=== PATIENT | female | born 1945 | race Caucasian/White ===

== ENCOUNTER 2016-05-09 12:05 | Inpatient (IN) | payer OTHER, MEDICARE ==
[~2016-05-09] VITALS: Ht 162.6 cm; Wt 75.5 kg
[~2016-05-09 12:05] MED LIST: ASPI1TAB69 PO; ATEN50TA PO; CELE1CAP8 PO; EVEN10003 PO; FENO54TA PO; LEVO75TA3 PO; LORA10TA PO; LOSA50TA PO; MAGN400C2 PO; METF500T PO; SPIRCAP INH
[2016-05-09] MEDS ORDERED: ROSU10 PO (14:37)
[2016-08-04] MEDS ORDERED: ACIDCAP PO (10:02)
[2016-08-04] MEDS ORDERED: MULT-65 PO (10:02)
[2016-08-04] MEDS ORDERED: CLOP75TA PO (10:03)
[2016-08-04] MEDS ORDERED: FLUT50SP EACH NARE (10:04)
[2016-08-05] VITALS (8 sets, daily range): BP systolic 114–177; BP diastolic 62–79; PULSE 68–82; RESP 16–18; TEMP 97.9–98.1; O2SAT 94–99
[2016-08-05] MEDS ORDERED: LACTATED RINGER'S 1000 ML IV SCH (09:00)
[2016-08-05] MEDS ORDERED: ceFAZolin 1,000 MG/NS 100 ML IV SCH ×2 (09:00)
[2016-08-05] MEDS ORDERED: SODIUM CHLORID 0.9% 500 ML IV SCH (09:00)
[2016-08-05] MEDS ORDERED: INSULIN HUMAN REGULAR 1,000 UNITS/10 ML VIAL SQ PRN (09:00)
[2016-08-05] MEDS ORDERED: METOPROLOL TARTRATE 25 MG TAB PO PRN (09:00)
[2016-08-05 09:25] LABS: AUTOMATED NEUTROPHIL # 3.5 TH/MM3 (1.8-7.7); BASOPHIL # 0.1 TH/MM3 (0-0.2); EOSINOPHIL # 0.2 TH/MM3 (0-0.4); EOSINOPHIL % 3.7 % (0.0-4.0); HEMATOCRIT 35.5 % (35.0-46.0); HEMO FLAGS DIFF FINAL; LYMPH % 26.5 % (9.0-44.0); LYMPHOCYTE # 1.5 TH/MM3 (1.0-4.8); MEAN CELL VOLUME 96.4 FL (80.0-100.0); MEAN CORPUSCULAR HEMOGLOBIN 31.3 PG (27.0-34.0); MEAN CORPUSCULAR HGB CONC 32.5 % (32.0-36.0); MONO % 8.4 % (0.0-8.0); NEUT % 60.4 % (16.0-70.0); PLATELET COUNT 177 TH/MM3 (150-450); RED BLOOD COUNT 3.68 MIL/MM3 (4.00-5.30); RED CELL DISTRIBUTION WIDTH 15.2 % (11.6-17.2); WHITE BLOOD COUNT 5.8 TH/MM3 (4.0-11.0)
[2016-08-05 09:30] LABS: APTT (PATIENT) 25.2 SEC (24.3-30.1); INTERNATIONAL NORMALIZED RATIO 0.9 RATIO
[2016-08-05 09:50] LABS: BICARBONATE 24.1 MEQ/L (21.0-32.0); POTASSIUM 4.3 MEQ/L (3.5-5.1)
[2016-08-05] MEDS ORDERED: PROTAMINE SULFATE 50 MG/5 ML VIAL ONE (10:46)
[2016-08-05] MEDS ORDERED: BUPIVACAINE/EPINEPHRINE 0.5% PF 30 ML VIAL ONE ×2 (10:46→12:55)
[2016-08-05] MEDS ORDERED: HEPARIN SODIUM - IV 10,000 UNITS/10 ML VIAL ONE (10:46)
[2016-08-05] MEDS ORDERED: HEPARIN SODIUM - SQ 10,000 UNITS/ML VIAL ONE (10:46)
[2016-08-05] MEDS ORDERED: MIDAZOLAM HCL 2 MG/2 ML VIAL ONE (10:57)
[2016-08-05] MEDS ORDERED: FAMOTIDINE 20 MG/2 ML VIAL ONE (10:58)
[2016-08-05] MEDS ORDERED: DEXAMETHASONE SOD PHOS 4 MG/ML VIAL ONE (10:58)
[2016-08-05] MEDS ORDERED: PROPOFOL 1000 MG/100 ML BTL IV ONE (12:00)
[2016-08-05] MEDS ORDERED: NORMOSOL R INJ 2,000 ML IV ONE (12:00)
[2016-08-05] MEDS ORDERED: LACTATED RINGER'S 1000 ML INJ 1,000 ML IV ONE (12:00)
[2016-08-05] MEDS ORDERED: PHENYLEPH/NS 1000 MCG/10 ML SYR IV ONE (12:00)
[2016-08-05] MEDS ORDERED: PROPOFOL 200 MG/20 ML AMP IV ONE (12:00)
[2016-08-05] MEDS ORDERED: NEOSTIGMINE METHYLSULFATE 10 MG/10 ML VIAL IV PUSH ONE (12:00)
[2016-08-05] MEDS ORDERED: ONDANSETRON HCL 4 MG/2 ML VIAL IV PUSH ONE (12:00)
[2016-08-05] MEDS ORDERED: ePHEDrine/NS 25 MG/5 ML SYR IV ONE (12:00)
[2016-08-05] MEDS ORDERED: IOHEXOL 300 MG/ML 50 ML BTL (for RAD DIAG) OTHER ONE (12:06)
[2016-08-05] MEDS ORDERED: DO NOT ADM ANY ANTICOAGULANT DRUGS XX PRN (15:00)
[2016-08-05] MEDS ORDERED: fentaNYL CITRATE 250 MCG/5 ML AMP ONE (15:00)
[2016-08-05] MEDS ORDERED: POTASSIUM CHLOR 20 MEQ 100 ML x 2 BAGS IV PRN (15:30)
[2016-08-05] MEDS ORDERED: ONDANSETRON HCL 4 MG/2 ML VIAL IV PUSH PRN (15:30)
[2016-08-05] MEDS ORDERED: DEXTROSE 50% IN WATER 50 ML VIAL(D50) IV PUSH PRN (15:30)
[2016-08-05] MEDS ORDERED: SODIUM CHLORIDE 0.9% FLUSH 10 ML FLUSH IV FLUSH PRN (15:30)
[2016-08-05] MEDS ORDERED: POTASSIUM PHOSPHATE 21 MMOL/NS 250 ML IV PRN ×2 (15:30)
[2016-08-05] MEDS ORDERED: MAGNESIUM SULFATE 1 GM/100 ML IV PRN (15:30)
[2016-08-05] MEDS ORDERED: GLUCAGON 1 MG/ML VIAL OTHER PRN (15:30)
[2016-08-05] MEDS ORDERED: POTASSIUM CHLOR 20 MEQ/100 ML x 1 BAG IV PRN (15:30)
[2016-08-05] MEDS ORDERED: ENOXAPARIN SODIUM 30 MG/0.3 ML SYRINGE ONE (16:45)
[2016-08-05] MEDS ORDERED: *morphine SULFATE 8 MG/ML PERIprocedure ONLY ONE (16:50)
[2016-08-05] MEDS ORDERED: ENOXAPARIN SODIUM 30 MG/0.3 ML SYRINGE SQ ONE (17:00)
[2016-08-05] MEDS ORDERED: *ONDANSETRON 4 MG VIAL PERIprocedural Use ONLY ONE (17:36)
[2016-08-05] MEDS: MEDIUM DOSE INSULIN NOVOLIN REGULAR SUPPLEMENTAL SCALE SQ SCH (21:00)
[2016-08-05] MEDS: FLUTICASONE PROPIONATE 50 MCG/ACT 16 GM NASAL SPRAY NASAL SCH (21:00)
[2016-08-06] VITALS (17 sets, daily range): BP systolic 108–138; BP diastolic 50–70; PULSE 69–81; RESP 17–18; TEMP 97.4–98.1; O2SAT 94–98
[2016-08-06] MEDS: MEDIUM DOSE INSULIN NOVOLIN REGULAR SUPPLEMENTAL SCALE SQ SCH ×2 (05:25→12:15)
[2016-08-06] MEDS ORDERED: LEVOTHYROXINE SODIUM 75 MCG TAB PO SCH (06:00)
[2016-08-06] MEDS ORDERED: ENOXAPARIN SODIUM 30 MG/0.3 ML SYRINGE SQ SCH (06:00)
[2016-08-06] MEDS: FLUTICASONE PROPIONATE 50 MCG/ACT 16 GM NASAL SPRAY NASAL SCH (08:52)
[2016-08-06] MEDS ORDERED: LORATADINE 10 MG TAB PO SCH (09:00)
[2016-08-06] MEDS ORDERED: CLOPIDOGREL 75 MG TAB PO SCH (09:00)
[2016-08-06] MEDS ORDERED: LOSARTAN 50 MG TAB PO SCH (09:00)
[2016-08-06] MEDS ORDERED: CELECOXIB 200 MG CAP PO SCH (09:00)
[2016-08-06] MEDS ORDERED: ATORVASTATIN 20 MG TAB PO SCH (09:00)
[2016-08-06] MEDS ORDERED: ATENOLOL 50 MG TAB PO SCH (09:00)
[2016-08-06] MEDS ORDERED: LACTOBACILLUS ACIDOPHILUS TAB PO SCH (09:00)
[2016-08-06] MEDS ORDERED: ASPIRIN EC 81 MG TABEC PO SCH (09:00)
[2016-08-06] MEDS ORDERED: FENOFIBRATE 48 MG TAB PO SCH (09:00)
[2016-08-06] MEDS ORDERED: TIOTROPIUM BROMIDE 18 MCG INH INH SCH (09:00)
--- NOTE | 2016-08-06 17:02 | MP ---
cc: DAYNE ORR DATE OF SURGERY: 08/05/2016 PREOPERATIVE DIAGNOSIS: Disabling left lower extremity ischemia. POSTOPERATIVE DIAGNOSIS: Disabling left lower extremity ischemia. OPERATION: 1. Left external iliac percutaneous wound angioplasty and stent placement. 2. Left femoral popliteal bypass, above knee, synthetic. SURGEON Dayne Orr MD. PROBATE LAWYER: JUAN Dutta ANESTHESIA: General / local DESCRIPTION OF OPERATIVE PROCEDURE: With the patient in the supine position, general endotracheal anesthesia was induced, the lower abdomen, both thighs and the entire left lower extremity prepped with Betadine and draped in a sterile fashion. One gram of Ancef was administered intravenously and following a protocol time out, the skin and subcutaneous tissue within the left inguinal area infiltrated with 0.5% Marcaine with epinephrine. A curvilinear incision was performed within the left inguinal skin crease. The left common superficial and profunda femoral artery were circumferentially mobilized and encircled with double loop vessel loops. The left common femoral artery was accessed with an 18 gauge needle, retrograde approach, a J-wire advanced into the left iliac artery. A 5-Macedonian sheath was deployed over the J-wire. Retrograde diluted contrast injection revealed patent stents within the left common and external iliac artery. A focal, high-grade approximately 80% stenosis was present within the external iliac immediately proximal to the previously placed external iliac stent and extending into the common iliac bifurcation. The right common iliac was widely patent. Also the right femoral popliteal bypass was noted widely patent as well. The left external iliac stenosis was balloon angioplastied with a 5 x 20 millimeter balloon inflated to 8 atmospheres, two separate inflations of two minutes each. This was followed by deployment of a 6 x 20 millimeter balloon expandable stent. Completion angiogram confirmed wide patency. Attention was then directed to the proposed left femoral-popliteal bypass. The skin and subcutaneous tissue along the distal medial thigh was infiltrated with 0.5% Marcaine with epinephrine. A vertical approximately 6 cm incision was performed, the incision deepened through the fascia into the proximal popliteal space. The popliteal artery was circumferentially mobilized and encircled with double loop vessel loops proximally and distally. The patient was systemically heparinized with 5000 units. The popliteal artery was occluded proximally and distally with double loop vessel loops. A vertical 2-cm arteriotomy was performed along the anteromedial surface. A 6-mm reinforced Propaten graft was spatulated on end anastomosed end-to-side to the arteriotomy with continuous 6-0 Prolene. The graft was tunneled sub-sartorially to the common femoral exposure wound. The PTFE graft was occluded with a DeBakey clamp immediately proximal to the popliteal anastomosis and the double loop vessel loops released reestablishing flow within the [place] popliteal. The common, superficial and profunda femoral arteries were occluded with double loop vessel loops. A vertical 2-cm arteriotomy was performed along the anterior surface of the distal common femoral. The PTFE graft was spatulated on end and anastomosed end-to-side to the femoral arteriotomy with continuous 6-0 Prolene. Prior to placement of the final sutures the graft and [place] arterial lumens were appropriately flushed, final sutures placed and tied, and pulsatile flow restored into the profunda, SFA as well as the popliteal as documented by significant augmentation of Doppler signal distal to the popliteal anastomosis. Heparin was reversed with 20 mg of protamine. Both incisions were closed with three separate layers of continuous 4-0 Monocryl. Skin was reapproximated with continuous subcuticular 5-0 Monocryl, reinforced with Steri-Strips and sterile dressings were placed. Instrument, needle, sponge count correct x2. At completion of the procedure the left dorsalis pedis pulse was easily palpable with robust biphasic Doppler flow. The patient returned to the recovery room in stable condition having tolerated the procedure well. MD MABEL Plunkett/SARAH /4:54 PM /4:38 PM
== END 2016-08-06 14:18 | disposition home or self-care (01) | DRG 254 ==
LOC: HSDI 08-05 08:14 → HCIN 08-05 18:34
PROVIDERS: ADMIT Surgery Vascular Surgery; ATTEND Surgery Vascular Surgery
PROC: 041L0JL Bypass Left Femoral Artery to Popliteal Artery with Synthetic Substitute, Open Approach (ICD-10-PCS; principal; 2016-08-05 11:08)
PROC: 047J3D6 (ICD-10-PCS; 2016-08-05 11:08)
DX: I70.212 Atherosclerosis of native arteries of extremities with intermittent claudication, left leg (principal); E11.9 Type 2 diabetes mellitus without complications; E78.5 Hyperlipidemia, unspecified; Z98.890 Other specified postprocedural states; Z87.891 Personal history of nicotine dependence
CPT/HCPCS: 75710; 76937; 80048; 82948; 85025; 85610; 85730; 86850; 86900; 86901; C1725; C1768; C1769; C1876; J0690; J1100; J1644; J1650; J2250; J2270; J2370; J2405; J2710; J2720; J3010; J7120; Q9967

== ENCOUNTER → 2017-01-23 | Outpatient (CLI) | payer OTHER ==
[~2017-01-23] MED LIST changes: +ACIDCAP PO; +AMIO200T PO; +ASPI81CH CHEW; +CLOP75TA PO; +DOCU1CAP39 PO; +FERR325T8 PO; +FLUT50SP EACH NARE; +FURO1TAB60 PO; +HYDR-3516 PO; +METO25TA3 PO; +MULT-65 PO; +OXYGENDME NAS.CANULA; +POTA-163 PO; +ROSU10 PO; +TIOT1AER INH
[2017-01-23 09:39] LABS: BLOOD GAS BASE EXCESS -5.3 mmol/L (-2-2); BLOOD GAS CARBOXYHEMOGLOBIN 2.8 % (0-4); BLOOD GAS HCO3 19 mmol/L (22-26); BLOOD GAS METHEMOGLOBIN 1.1 % (0-2); BLOOD GAS O2 HGB SATURATION 92 % (90-100); BLOOD GAS OXYGEN CONTENT 11.4 Vol % (12.0-20.0); BLOOD GAS PCO2 35 mmHg (38-42); BLOOD GAS PO2 83 mmHg (61-120); BLOOD GAS TOTAL HGB 8.8 G/DL (12.0-16.0); TEMP CORR TO 98.6
[2017-01-23 09:42] LABS: CRITICAL VALUE NO; DRAW SITE RT RADIAL; FIO2 21 %
[2017-01-23 09:43] LABS: NUMBER OF ARTERIAL PUNCTURES 1; STAT NO; ULNAR PULSE PRESENT
--- NOTE | 2017-01-28 08:43 | RSPPFT ---
DATE OF PROCEDURE: 01/23/17 COMMENTS: VOLUMES DYNAMIC: FVC and FEV1 mildly reduced. STATIC: TLC low normal; FRC and RV normal. FLOWS: FEV1% mildly reduced; FEF 25-75 severely reduced. DIFFUSION: Severely reduced. FLOW VOLUME LOOP: Terminal airflow obstruction. IMPRESSION: Mild obstructive ventilatory defect with no significant hyperinflation. Airways resistance is significantly increased and diffusion is severely reduced. Minimal change post-bronchodilator.
== END ==
LOC: HRSP 07:38
PROVIDERS: ATTEND Internal Medicine
DX: J44.9 Chronic obstructive pulmonary disease, unspecified (principal)
CPT/HCPCS: 36600; 82805; 94060; 94620; 94726; 94729

== ENCOUNTER 2017-02-23 06:14 | Day surgery (SDC) | payer OTHER ==
[~2017-02-23] VITALS: Ht 165.1 cm; Wt 72.1 kg
[~2017-02-23 06:14] MED LIST changes: -AMIO200T PO; -ASPI81CH CHEW; -DOCU1CAP39 PO; -FERR325T8 PO; -FURO1TAB60 PO; -HYDR-3516 PO; -METO25TA3 PO; -OXYGENDME NAS.CANULA; -POTA-163 PO; -TIOT1AER INH
[2017-02-23] MEDS ORDERED: IOHEXOL 350 MG/ML 100 ML BTL (for Cath Lab) OTHER ONE (06:15)
[2017-02-23] MEDS ORDERED: NS 1000P @30 MLS/HR (KVO) IV SCH (06:45)
[2017-02-23 07:09] VITALS: BP 142/68; PULSE 75; RESP 18; TEMP 98.4; O2SAT 92
[2017-02-23] MEDS ORDERED: ASPI81CH CHEW (07:13)
[2017-02-23] MEDS ORDERED: TIOT1AER INH (07:14)
[2017-02-23 07:23] LABS: AUTOMATED NEUTROPHIL # 3.2 TH/MM3 (1.8-7.7); BASOPHIL % 0.9 % (0.0-2.0); EOSINOPHIL # 0.2 TH/MM3 (0-0.4); EOSINOPHIL % 4.7 % (0.0-4.0); HEMATOCRIT 27.7 % (35.0-46.0); HEMO FLAGS DIFF FINAL; LYMPH % 22.4 % (9.0-44.0); LYMPHOCYTE # 1.1 TH/MM3 (1.0-4.8); MEAN CELL VOLUME 68.1 FL (80.0-100.0); MEAN CORPUSCULAR HEMOGLOBIN 20.5 PG (27.0-34.0); MEAN CORPUSCULAR HGB CONC 30.1 % (32.0-36.0); MONO % 9.4 % (0.0-8.0); NEUT % 62.6 % (16.0-70.0); PLATELET COUNT 356 TH/MM3 (150-450); RED BLOOD COUNT 4.07 MIL/MM3 (4.00-5.30); RED CELL DISTRIBUTION WIDTH 19.9 % (11.6-17.2); WHITE BLOOD COUNT 5.1 TH/MM3 (4.0-11.0)
[2017-02-23 07:32] LABS: APTT (PATIENT) 26.8 SEC (24.3-30.1); PROTHROMBIN TIME - PATIENT 10.6 SEC (9.8-11.6)
[2017-02-23 07:46] LABS: BICARBONATE 25.4 MEQ/L (21.0-32.0); POTASSIUM 4.2 MEQ/L (3.5-5.1)
[2017-02-23] MEDS ORDERED: HEPARIN-NS/PF INJ 1,000 ML ONE (08:26)
[2017-02-23] MEDS ORDERED: MIDAZOLAM HCL 2 MG/2 ML VIAL ONE (08:26)
[2017-02-23] MEDS ORDERED: SODIUM CHLORID 0.9% 500 ML INJ 500 ML ONE (08:26)
[2017-02-23] MEDS ORDERED: VERAPAMIL HCL 5 MG/2 ML VIAL ONE (08:39)
[2017-02-23] MEDS ORDERED: HEPARIN SODIUM - IV 10,000 UNITS/10 ML VIAL ONE (08:40)
[2017-02-23] MEDS ORDERED: NITROGLYCERIN INJ 5 ML ONE (08:42)
[2017-02-23] MEDS ORDERED: MIDAZOLAM HCL 2 MG/2 ML VIAL IV ONE (08:45)
[2017-02-23] MEDS ORDERED: NITROGLYCERIN 1000 MCG/5 ML VIAL OTHER ONE (09:00)
[2017-02-23] MEDS ORDERED: VERAPAMIL HCL 5 MG/2 ML VIAL OTHER ONE (09:00)
[2017-02-23] MEDS ORDERED: HEPARIN SODIUM - IV 10,000 UNITS/10 ML VIAL IV ONE (09:00)
[2017-02-23] MEDS ORDERED: HEPARIN SODIUM - IV 10,000 UNITS/10 ML VIAL I-ARTERIAL ONE (09:00)
--- NOTE | 2017-02-23 09:35 | CATHPROC ---
[facility] HIS Report Study Information Study Number Admission Scheduled Start Study Start [id number] Feb 23 2017 6:14AM 02/23/2017 Feb 23 2017 8:18AM [facility]iac Catheterization Admit Source Facility Department Other [facility] - Test Engine Operator Physician and Clinical Staff Initial Kb Torres Delivery Director Abram Dc,MARCOS Recorder Aureliano Avina,RT(R) Scrub Ruperto Gant RCIS(BS) Procedures Performed Procedure Location (Site) Vessel Name Coronary Angiograms LCA Left Coronary Coronary Angiograms RCA Right Coronary IVUS LAD Mid Left Coronary L Heart Cath Wire insertion Radial (right) Radial Art. Equipment Time Ssn/Ssbn Weapons Equipment Operator Description Size Mfg Part Number Used/Scraped [id number] 09:03 [employer] WIRE, ASAHI PROWATER 180CM 180CM Used *[id number] TRANSDUCER, TRUWAVE [id number] 08:34 BARRON ALICIA * Used W/STOCKCOCK *[id number] *[id number] *[id number] 08:34 [employer] INDUSTRIES PACK, CCL CUSTOM * Used *[id number] 08:56 [employer]/AVE EBU 3.5 Z2 GUIDE CATHETER FR 6 Used *[id number] BAND, RADIAL COMPRESSION TR [id number] 09:20 [employer] MEDICAL 24CM Used SHORT 24 *[id number] 08:34 [employer] MEDICAL WIRE, 3MMJ .035 180CM 180CM Used *[id number] 08:34 NAMIC MANIFOLD, 4 PORT * Used *[id number] 08:34 [employer]COMED OMNIPAQUE, 350 MG, 150ML 150ML [id number] Used [id number] 08:34 ROMAN MEDICAL BLANKET,WARM AIR CCL * Used *[id number] SHEATH, FR6 TRANSRADIAL RM*[id number] 08:46 TERTakt[employer] MEDICAL FR 6 Used SLENDER 10CM *[id number] CATHETER, [employer] [employer] [id number] 08:56 VOLCANO Used IMAGING *[id number] Equipment Model, Serial, Lot Number and Expiration Data Description Model Number Serial Number Lot Number Expiration Date CATHETER, [employer] [id number] 01-15-2019 IMAGING History: Current Medications Medication Dosage/Unit Route Frequency Last Date/Time Taken ASA PLAVIX History: Allergies Allergy Reaction No Known Allergies History: Risk Factors Family History of Hypertension Dyslipidemia Previous AK Previous Heart Failure Premature CAD Yes Yes Yes No No Prior Valve Prior PCI Prior CABG Surgery No No No Cerebrovascular Peripheral Artery Chronic Lung On Dialysis Diabetes Diabetes Therapy Disease Disease Disease No No Yes Yes Yes Oral History: Symptoms/Diagnosis Selection Items Chest pain History: CV Disease Selection Items Known CAD History: Stress Tests Stress or Imaging Studies Performed Yes Standard Exercise Stress Test No Stress Echo No Stress Test SPECT Stress Test SPECT Result Stress Test SPECT Ischemia Risk/Extent Yes Positive Low Stress Test CMR No Cardiac CTA Coronary Calcium Score No No History: Other Disease Selection Items CAD COPD HTN History: Other Current Smoker Method Quit Packs a Day Years Used Pack Years No Cigarettes 20 Years Ago 2 30 60 Labs Hgb (g/dl) Hct (%) RBC (MIL/MM3) WBC (l/cumm) Platelets (thousands) 11.60-17.00 35.00-51.00 4.00-5.90 4.00-11.00 150.00-450.00 8.3 27.7 4 5.1 356 Glucose (mg/dl) BUN (mg/dl) Creatinine (mg/dl) BUN:Creatinine (1:x) 74.00-106.00 7.00-18.00 0.50-1.30 10.00-20.00 136 14 0.9 15.6 Na (meq/l) K (meq/l) Cl (meq/l) CO2 (mmol/L) Ca (mg/dl) 136.00-145.00 3.50-5.10 98.00-107.00 21.00-32.00 8.50-10.10 137 4.2 104 25.4 8.6 PT (sec) PTT (sec) INR (PTT:PT) 9.80-11.60 24.30-30.10 0.90-1.10 10.6 26.8 1 CPK-MB (ng/ML) 0.50-3.60 Not Drawn Medication Medication Total Dose (Bolus/Oral) Medication Total Dosage/Unit 1% XYLOCAINE 5 mL FENTANYL 50 mcg HEPARIN 4300 units RADIAL COCKTAIL 5 mL (Bolus) VERSED 1 mg Medications (Bolus/Oral) Medication Time Given Dosage/Unit Administered By Reason VERSED 02/23/2017 8:38:48 AM 1 mg Abram Dc 1 mg VERSED given in lab by FerAbram contreras RN in Left Antecubital via Peripheral IV. FENTANYL 02/23/2017 8:38:50 AM 50 mcg Abram Dc 50 mcg FENTANYL given in lab by Abram Dc RN in Left Antecubital via Peripheral IV. 1% XYLOCAINE 02/23/2017 8:39:10 AM 5 mL Kb Salinas 5 mL 1% XYLOCAINE given in lab by Kb Salinas in Right Wrist via Subcutaneous. Ntg 200mcg Verapamil 2.5mg Heparin RADIAL COCKTAIL 02/23/2017 8:44:08 AM 5 mL (Bolus) Kb Salinas 2000U 5 mL (Bolus) RADIAL COCKTAIL given in lab by Kb Salinas via Radial. Using [Solution Name]. Merle son: Ntg 200mcg Verapamil 2.5mg Heparin 2900U. HEPARIN 02/23/2017 8:59:27 AM 4300 units Abram Dc 4300 units HEPARIN given in lab by Abram Dc RN in Left Antecubital via Peripheral IV. Medication (Drip) Medication Time Given Dosage/Unit Concentration/Unit Diluent (ml) Solutio n IV Solutions 02/23/2017 8:23:28 AM 0 mL (IV) 500 NaCl .9 IV Solutions given in lab by Abram Dc RN in Left Antecubital via Peripheral IV. Pump/Drip Flow = 20 ml/hr using NaCl .9. Initial Case Assessment Cardiovascular HR Rhythm Chest Pain 74 Sinus 0 Edema Present Skin color Skin None Normal Warm Dry Circulatory - Right Pulses Dorsalis Pedis Femoral 1 1 Scale (0,1,2,3,4,d) Circulatory - Left Pulses Dorsalis Pedis Femoral 1 1 Scale (0,1,2,3,4,d) Neurological State Oriented to time-place- Alert Moves all extremities person Respiration - General Respiration Rate SpO2 (%) O2 (lpm) (B/min) 10 97 0 Final Case Assessment Cardiovascular HR Rhythm NIBP Chest Pain 70 Sinus 177/73 0 Edema Present Skin color Skin None Normal Warm Dry Circulatory - Right Pulses Dorsalis Pedis Femoral Radial 1 1 2 Scale (0,1,2,3,4,d) Circulatory - Left Pulses Dorsalis Pedis Femoral Radial 1 1 Scale (0,1,2,3,4,d) Neurological State Oriented to time-place- Alert Moves all extremities person Respiration - General Respiration Rate SpO2 (%) O2 (lpm) (B/min) 14 100 2 Chronological Log Time Study Chronological Log 8:15:35 Patient arrived via Bed. 8:19:42 Patient Name, D.O.B, / Armband Verified By R.N. 8:19:42 Consent signed by the physician and the patient and verified by the Test Engine Operator staff. 8:19:43 Pre-op and post- op instructions given; patient acknowledges understanding of instructions. 8:19:44 Verbal Stimulation=2 Physical Stimulation=2 Airway=2 Respiration=2 TOTAL=8. (0=absent, 1=li mited, 2=present) 8:22:44 Presedation assessment performed by Test Engine Operator RN. 8:22:47 Patient has been NPO for More than 6Hrs. 8:22:56 Skin Breakdown- none per patient. 8:23:12 Patient Warmer Placed on the Table. 8:23:14 Octaviano Prominences Protected 8:23:15 A # 20 IV was noted in the Antecubital (left). Grade = 0 IV Solutions given in lab by Abram Dc, RN in Left Antecubital via Peripheral IV. Pump/Dri p Flow = 20 ml/hr using 8:23:28 NaCl .9. 8:24:02 History and physical on the chart or being dictated. Assessment: Initial Case, HR=74 BPM, Rhythm=Sinus, Chest Pain=0, Edema=None, Color=Normal, Skin = Warm, Dry Right Pulses: Helder Ped=1, Femoral=1 8:24:07 Left Pulses: Helder Ped=1, Femoral=1 Neurological: State=Alert, Ox3, MOLINA Respiration: Resp=10 B/min, SpO2=97 %, O2=0 lpm 8:24:17 Reference ECG taken Vitals capture started with the following parameters, Patient=Adult, Interval=3 min, Initial Pre mvump=021 mmHg, 8:24:21 Deflation Rate=5 mmHg, Cuff placed on Left Ankle 8:25:00 HR=73 bpm, TKMZ=165/77 mmhg, SpO2=96.0 %, Resp=8 B/min, Pain=0, Isreal=10, Vaughn=2 8:28:02 HR=73 bpm, SOGO=570/73 mmhg, SpO2=97.0 %, Resp=12 B/min, Pain=0, Isreal=10, Vaughn=2 8:28:15 MD arrived. 8:31:01 HR=73 bpm, MABT=467/82 mmhg, SpO2=92.0 %, Resp=9 B/min, Pain=0, Isreal=10, Vaughn=2 8:32:50 Bilateral groins prepped with 2% chlorhexidine, and draped after a 3 minute waiting time. 8:34:05 HR=73 bpm, TMCA=368/73 mmhg, SpO2=82.0 %, Resp=16 B/min, Pain=0, Isreal=10, Vaughn=2 8:35:18 Pressure channel 1 zeroed. 8:37:03 HR=72 bpm, FYMX=726/78 mmhg, BpH7=588.0 %, Resp=15 B/min, Pain=0, Isreal=10, Vaughn=2 Time Out. Correct patient, correct procedure, correct physician, power injector loaded, or not l oaded with contrast with 8:38:46 surgical team present. Time Out Concurred by MD and individual staff in procedure. 8:38:48 1 mg VERSED given in lab by Abram Dc, MARCOS in Left Antecubital via Peripheral IV. 8:38:50 50 mcg FENTANYL given in lab by Abram Dc, MARCOS in Left Antecubital via Peripheral IV. 8:39:09 Case Start 8:39:10 5 mL 1% XYLOCAINE given in lab by Kb Salinas in Right Wrist via Subcutaneous. 8:40:03 HR=76 bpm, VWDJ=037/74 mmhg, JmF5=554.0 %, Resp=10 B/min, Pain=0, Isreal=10, Vaughn=2 8:41:43 Access site was Radial Artery. 8:43:04 HR=73 bpm, TWJB=480/70 mmhg, GfD6=571.0 %, Resp=11 B/min, Pain=0, Isreal=10, Vaughn=2 A SHEATH, FR6 TRANSRADIAL SLENDER 10CM FR 6 was advanced into the Radial (right) using the Fani anthony 8:43:24 technique. 5 mL (Bolus) RADIAL COCKTAIL given in lab by Kb Salinas via Radial. Using [Solution Name] . Reason: Ntg 8:44:08 200mcg Verapamil 2.5mg Heparin 2900U. 8:44:45 A catheter was advanced over a wire. OMNIPAQUE, 350 MG, 150ML 150ML was used for injections. 8:46:04 HR=78 bpm, GDEF=359/67 mmhg, SbI7=035.0 %, Resp=12 B/min, Pain=0, Isreal=10, Vaughn=2 Recorded Pressure: LV, HR=75, Condition=Condition 1 8:47:19 (Left Ventricle) LV 146/3/8 Recorded Pressure: LV, Ao, HR=77, Condition=Condition 1 8:47:30 (Left Ventricle) LV 145/2/7, (Aorta) Ao 147/55/91 Recorded Pressure: Ao, HR=76, Condition=Condition 1 8:48:17 (Aorta) Ao 144/57/92 8:48:35 The RCA was injected and visualized at various angles. OMNIPAQUE, 350 MG, 150ML 150ML used. 8:48:58 HR=75 bpm, ZSGQ=481/67 mmhg, SpO2=98.0 %, Resp=11 B/min, Pain=0, Isreal=10, Vaughn=2 After removing the current catheter a JL 3.5 INFINITI CATHETER FR 5 was advanced over a WIRE, 3M MJ .035 180CM 8:51:07 180CM. 8:51:58 HR=76 bpm, YKLA=912/70 mmhg, SpO2=97.0 %, Resp=12 B/min, Pain=0, Isreal=10, Vaughn=2 8:52:56 The LCA was injected and visualized at various angles. OMNIPAQUE, 350 MG, 150ML 150ML used. 8:55:00 HR=76 bpm, ATOD=941/72 mmhg, SpO2=99.0 %, Resp=11 B/min, Pain=0, Isreal=10, Vaughn=2 8:58:03 HR=77 bpm, BYLT=545/69 mmhg, MvV1=457.0 %, Resp=14 B/min, Pain=0, Isreal=10, Vaughn=2 8:59:27 4300 units HEPARIN given in lab by Abram Dc RN in Left Antecubital via Peripheral IV. After removing the current catheter a EBU 3.5 Z2 GUIDE CATHETER FR 6 was advanced over a WIRE, 3 MMJ .035 8:59:41 180CM 180CM. 9:01:05 HR=74 bpm, EJAK=836/63 mmhg, GuW9=124.0 %, Resp=12 B/min, Pain=0, Isreal=10, Vaughn=2 9:04:02 A WIRE, ASAHI PROWATER 180CM 180CM was inserted via Radial (right). 9:04:05 HR=74 bpm, PVTV=523/66 mmhg, NvF9=731.0 %, Resp=13 B/min, Pain=0, Isreal=10, Vaughn=2 9:06:37 Wire removed 9:07:03 HR=73 bpm, KGYY=434/65 mmhg, IfY2=367.0 %, Resp=11 B/min, Pain=0, Isreal=10, Vaughn=2 9:07:12 A WIRE, 3MMJ .035 180CM 180CM was inserted via Radial (right). 9:08:11 Wire removed 9:10:02 HR=76 bpm, KZVC=409/73 mmhg, OkG5=095.0 %, Resp=10 B/min, Pain=0, Isreal=10, Vaughn=2 9:13:01 A WIRE, ASAHI PROWATER 180CM 180CM was inserted via Radial (right). 9:13:02 HR=72 bpm, YLJC=683/71 mmhg, IaB5=803.0 %, Resp=11 B/min, Pain=0, Isreal=10, Vaughn=2 9:13:08 Interventional wire has crossed the lesion 9:13:56 A wire was inserted via Radial (right). 9:15:10 An CATHETER, [employer] IMAGING was advanced through the lesion. Images saved ont o IVUS hard drive 9:15:27 IVUS in progress using CATHETER, [employer] IMAGING 9:15:48 IVUS catheter removed 9:16:02 HR=71 bpm, KIYK=417/65 mmhg, OmI9=725.0 %, Resp=11 B/min, Pain=0, Isreal=10, Vaughn=2 9:19:04 HR=72 bpm, ZRFT=356/73 mmhg, YaZ0=908.0 %, Resp=11 B/min, Pain=0, Isreal=10, Vaughn=2 9:20:37 The LCA was injected and visualized at various angles. OMNIPAQUE, 350 MG, 150ML 150ML used . 9:20:51 Wire removed 9:21:50 Catheter was removed Radial Compression Device Used. ~VOLUME ML~ mLs of air placed in BAND, RADIAL COMPRESSION TR SH ORT 24 9:22:30 24CM. Affected hand ~O2 SATURATION~ % O2 saturation. 9:23:20 Case End Assessment: Final Case, HR=70 BPM, Rhythm=Sinus, XWPG=549/73 mmhg, Chest Pain=0, Edema=None, Color=Normal, Skin = Warm, Dry Right Pulses: Helder Ped=1, Femoral=1, Radial=2 9:23:27 Left Pulses: Helder Ped=1, Femoral=1 Neurological: State=Alert, Ox3, MOLINA Respiration: Resp=14 B/min, YaO7=554 %, O2=2 lpm 9:23:29 HR=69 bpm, EKVF=219/73 mmhg, EfI9=374.0 %, Resp=13 B/min, Pain=0, Isreal=10, Vaughn=2 9:24:22 No case complications noted. 9:24:24 Cine recording checked. 9:24:25 Holding Area notified of successful intervention. 9:25:00 Bedside Report will be given. 9:25:08 A Left Heart Cath was performed. 9:25:09 HR=67 bpm, TPCV=276/64 mmhg, YxE9=774.0 %, Resp=12 B/min, Pain=0, Isreal=10, Vaughn=2 9:27:55 Vitals capture stopped. 9:30:44 [facility] - Contrast Media Used In Study Contrast Total Opened (mL) Total Used (mL) Total Wasted (mL) Omnipaque 150 65 85 End Study - Maximum Contrast Load Max Contrast Load (mL) 400.5 End Study - Radiation Exposure Fluoro Time (minutes) 10.5 End Study - Patient Disposition Complications Transferred To Interventional Outcome No Outpatient Bed No attempt made
--- NOTE | 2017-02-23 12:28 | EKG ---
Date Performed: 02/23/2017 Time Performed: 07:22:20 PTAGE: 71 years EKG: Sinus rhythm Lateral ST changes are nonspecific Compared to previous tracing nonspecific ST segment changes are n ow present, although just slightly more so than on previous ekg Borderline ECG PREVIOUS TRACING : 05/15/2016 10.34 DOCTOR: Trevor Burton Interpretating Date/Time 02/23/2017 12:27:00
--- NOTE | 2017-02-23 13:50 | RADRPT ---
EXAM DATE/TIME: 02/23/2017 12:31 [facility] COMPARISON: No previous studies available for comparison. INDICATIONS : Pre op cardiac surgery. MEDICAL HISTORY : Hypothyroidism. Hypercholesterolemia. Hypertension. Diabetes. SURGICAL HISTORY : Coronary artery stent. Right ear surgery. Lumbar discectomy. Left carotid endarterectomy. ENCOUNTER: Initial ACUITY: 1 day PAIN SCORE: 0/10 LOCATION: Bilateral neck PEAK SYSTOLIC VELOCITIES (cm/sec): ICA/CCA RATIO: Right: 1.5 Left: 1.8 ICA: Right: 150.3 Left: 185.6 CCA: Right: 100.3 Left: 104.0 ECA: Right: 183.9 Left: 94.7 VERTEBRAL: Right: 65.1 antegrade Left: 94.7 antegrade Elevated flow velocities and ICA/CCA ratios have been found to correlate with increased degrees of vessel stenosis, calculated as percentage of diameter relative to a normal segment of distal ICA/CCA FINDINGS: RIGHT CAROTID: Mild noncalcified plaque with slight increased velocities and ratio consistent with low range moderat e, 50-69%, stenosis. LEFT CAROTID: Postsurgical features of prior endarterectomy with expected mild to moderately increased velocities. VERTEBRAL ARTERIES: Antegrade flow is seen in both vertebral arteries. MISCELLANEOUS: None. CONCLUSION: 1. Diffuse mild noncalcified right carotid plaque with resultant moderate, 50-69%, stenosis. This is likely in the lower 50% range. 2. Postsurgical features of prior endarterectomy with intimal hyperplasia resulting in moderate, 50-6 9%, stenosis range velocities. Grayscale imaging is more consistent with mild, <50%, stenosis. Antonio Maurer MD on February 23, 2017 at 13:42 Board Certified Radiologist. This report was verified electronically.
--- NOTE | 2017-02-23 14:01 | RADRPT ---
EXAM DATE/TIME: 02/23/2017 12:53 [facility] COMPARISON: No previous studies available for comparison. INDICATIONS : Pre op cardiac surgery. MEDICAL HISTORY : Hypothyroidism. Hypercholesterolemia. Hypertension. Diabetes. SURGICAL HISTORY : Coronary artery stent. Right ear surgery. Lumbar discectomy. Bilateral leg vascular surgery. Carotid endarterectomy. ENCOUNTER: Initial ACUITY: 1 day PAIN SCORE: 0/10 LOCATION: Bilateral legs. TECHNIQUE: Venous ultrasound of the left and right leg was performed from the inguinal ligament to the proximal calf. Real-time, color Doppler and spectral tracing, compression and augmentation techniques were us ed. FINDINGS: RIGHT LEG: There is normal compressibility of the deep venous system from the inguinal region to the proximal ca lf. No echogenic clot is seen in the lumen of the common femoral, femoral, popliteal, and posterior tibial veins. There is a normal response of the venous system to proximal and distal augmentation an d respiration. LEFT LEG: There is normal compressibility of the deep venous system from the inguinal region to the proximal ca lf. No echogenic clot is seen in the lumen of the common femoral, femoral, popliteal, and posterior tibial veins. There is a normal response of the venous system to proximal and distal augmentation an d respiration. CONCLUSION: 1. Suboptimal visualization of the right femoral vein due to adjacent SFA atherosclerotic calcificati ons. 2. Otherwise, no sonographic evidence for lower extremity DVT. Antonio Maurer MD on February 23, 2017 at 13:58 Board Certified Radiologist. This report was verified electronically.
--- NOTE | 2017-02-23 14:19 | RADRPT ---
EXAM DATE/TIME: 02/23/2017 13:16 [facility] COMPARISON: US LEG BILATERAL VENOUS DOPPLER, February 23, 2017, 12:53. INDICATIONS : Pre op cardiac surgery. MEDICAL HISTORY : Hypercholesterolemia. Hypertension. Hypothyroidism. Diabetes. SURGICAL HISTORY : Coronary artery stent. Right ear surgery. Lumbar discectomy.Bilateral leg vascular surgery. LT tobar tid endarterectomy. ENCOUNTER: Initial ACUITY: 1 day PAIN SCORE: 0/10 LOCATION: Bilateral legs. GREATER SAPHENOUS VEIN THIGH: PROXIMAL: Right 7 mm Left 7 mm MID: Right 4 mm Left 4 mm DISTAL: Right 3 mm Left 4 mm CALF: PROXIMAL: Right 3 mm Left 2 mm MID: Right 2 mm Left 2 mm DISTAL: Right 3 mm Left Non-visualized FINDINGS: The venous system of the lower extremities are patent by color Doppler imaging. Measurements of the leg veins (in mm) are listed above. CONCLUSION: 1. Venous mapping as above. Vic Enamorado MD on February 23, 2017 at 14:16 Board Certified Radiologist. This report was verified electronically.
[2017-02-23] MEDS ORDERED: ACETAMINOPHEN 325 MG TAB PO ONE (14:30)
--- NOTE | 2017-02-23 17:50 | RADRPT ---
EXAM DATE/TIME: 02/23/2017 17:38 [facility] COMPARISON: No previous studies available for comparison. INDICATIONS : Evaluate for pneumonia, pneumothorax, or communicable disease. Pre op CABG. MEDICAL HISTORY : None. SURGICAL HISTORY : Heart catherization. ENCOUNTER: Initial ACUITY: 1 day PAIN SCORE: 0/10 LOCATION: Bilateral chest FINDINGS: PA and lateral views of the chest demonstrate the lungs to be symmetrically aerated without evidence of mass, infiltrate or effusion. The cardiomediastinal contours are unremarkable. Osseous structure s are intact. CONCLUSION: No acute disease. Bijan Enamorado MD FACR on February 23, 2017 at 17:48 Board Certified Radiologist. This report was verified electronically.
--- NOTE | 2017-02-23 18:10 | PD.CAR.PN ---
CVT Progress Note Subjective/Hospital Course: sts data discussed with pt RISK SCORES About the STS Risk Calculator Procedure: CAB Only Risk of Mortality: 1.639% Morbidity or Mortality: 12.458% Long Length of Stay: 4.951% Short Length of Stay: 41.026% Permanent Stroke: 1.481% Prolonged Ventilation: 8.79% DSW Infection: 0.456% Renal Failure: 2.568% Reoperation: 4.182% Objective: Vital Signs Date Time Temp Pulse Resp B/P (MAP) Pulse Ox O2 Delivery O2 Flow Rate FiO2 02/23/17 09:38 96 Room Air 02/23/17 07:09 98.4 75 18 142/68 (92) 92 Labs: Laboratory Tests Test 02/23/17 07:00 White Blood Count 5.1 TH/MM3 (4.0-11.0) Red Blood Count 4.07 MIL/MM3 (4.00-5.30) Hemoglobin 8.3 GM/DL (11.6-15.3) Hematocrit 27.7 % (35.0-46.0) Mean Corpuscular Volume 68.1 FL (80.0-100.0) Mean Corpuscular Hemoglobin 20.5 PG (27.0-34.0) Mean Corpuscular Hemoglobin Concent 30.1 % (32.0-36.0) Red Cell Distribution Width 19.9 % (11.6-17.2) Platelet Count 356 TH/MM3 (150-450) Mean Platelet Volume 6.6 FL (7.0-11.0) Neutrophils (%) (Auto) 62.6 % (16.0-70.0) Lymphocytes (%) (Auto) 22.4 % (9.0-44.0) Monocytes (%) (Auto) 9.4 % (0.0-8.0) Eosinophils (%) (Auto) 4.7 % (0.0-4.0) Basophils (%) (Auto) 0.9 % (0.0-2.0) Neutrophils # (Auto) 3.2 TH/MM3 (1.8-7.7) Lymphocytes # (Auto) 1.1 TH/MM3 (1.0-4.8) Monocytes # (Auto) 0.5 TH/MM3 (0-0.9) Eosinophils # (Auto) 0.2 TH/MM3 (0-0.4) Basophils # (Auto) 0.0 TH/MM3 (0-0.2) CBC Comment DIFF FINAL Differential Comment Prothrombin Time 10.6 SEC (9.8-11.6) Prothromb Time International Ratio 1.0 RATIO Activated Partial Thromboplast Time 26.8 SEC (24.3-30.1) Blood Urea Nitrogen 14 MG/DL (7-18) Creatinine 0.91 MG/DL (0.50-1.00) Random Glucose 136 MG/DL (74-106) Calcium Level 8.6 MG/DL (8.5-10.1) Sodium Level 137 MEQ/L (136-145) Potassium Level 4.2 MEQ/L (3.5-5.1) Chloride Level 104 MEQ/L (98-107) Carbon Dioxide Level 25.4 MEQ/L (21.0-32.0) Anion Gap 8 MEQ/L (5-15) Estimat Glomerular Filtration Rate 61 ML/MIN (>89) Result Diagram: 02/23/1769902/23/17699 Maryann Gunderson Feb 23, 2017 18:10
[2017-02-23 18:47] LABS: BLOOD, URINE NEG (NEG); GLUCOSE,URINE NEG (NEG); KETONE, URINE NEG (NEG); NITRITE,URINE NEG (NEG); SQUAMOUS EPITHELIAL CELL URINE 1 /hpf (0-5); URINE COLOR LIGHT-YELLOW (YELLW/STRAW)
[2017-02-23 18:49] LABS: COMMENT (UR) CULT NOT INDICATED; CULTURE IF INDICATED CULT NOT INDICATED
[2017-02-23 23:58] LABS: TRANSFERRIN IRON PROFILE 479 MG/DL (200-360)
--- NOTE | 2017-02-24 00:02 | MA ---
cc: KB ELAINE DO DATE: 02/23/2017 PROCEDURE Left heart catheterization, coronary angiogram, IVUS left main, moderate sedation 45 minutes PREPROCEDURE DIAGNOSIS Unstable angina. POSTPROCEDURE DIAGNOSIS Multivessel coronary artery disease with left main disease (4.0 mm squared by IVUS). MEDICATIONS: 1. Versed 1 mg. 2. Fentanyl 50 mcg. 3. Heparin 7200 units. 4. Verapamil 2.5 mg. 5. Nitro 200 mcg. CONTRAST 65 cc Fluoroscopy: 10.5 minutes Moderate sedation: 45 minutes ESTIMATED BLOOD LOSS: 10 cc. PROCEDURAL SUMMARY Kathy Paris is a pleasant 71 year-old female who I have seen in the office who recently underwent stress testing. This was found to be normal but she started having symptoms which were relatively classic for unstable angina. Because of this she was recommended cardiac catheterization for further delineation of her coronary artery disease. The risks, benefits and alternatives were explained to her and she consented as such. She was brought to the lab and prepped in the usual sterile fashion. Right radial artery was accessed using a modified Seldinger technique and placement of a 5/6 Sudanese slender sheath. This was easily aspirated and flushed. A JR-4 was advanced over a J-wire to the ascending aorta and across the aortic valve for measurement of left ventricular pressure. This was pulled back across the aortic valve showing no significant gradient of aortic stenosis. The JR-4 was used for selective angiography of the right coronary artery. This was exchanged out for a JL-3.5 which was used for selective angiography of the left coronary artery. As there was concern with significant dampening of the JL 3.5, I felt that left main disease needed to be ruled out. The patient was given heparin as an additional anticoagulant. An EBU 3.5 catheter was then engaged in the left main with some dampening. A Prowater wire was advanced into the LAD and the guide was removed from the left main. An IVUS catheter was placed into the LAD and recordings were taken on pullback. Review of the images shows that the left main at the ostium and distal portions measures around 4 millimeters squared, consistent with significant stenosis. IVUS catheter and wire were removed. Final angiography shows no disruption of the coronary artery system. Guide catheter was removed over a wire. Radial band was placed over the arteriotomy site. 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 FINDINGS Left main: Normal size vessel with 70% ostial disease. IVUS measuring 4.0 millimeter squared signifying significant stenosis. LAD: Normal size vessel with 60% stenosis in the proximal portion. The midportion has a 50% lesion and distally there is 30-40%. It gives off two small diagonals. The first one being larger and no significant disease. The second one being significantly small with a 90% ostial stenosis. Left circumflex: Normal size vessel. In the midportion before the takeoff of the first major obtuse marginal there is a 90% long tubular lesion. RCA: Normal-size vessel with diffuse mild to moderate disease throughout the midportion. In the [id number] portion there appears to be a 70% lesion and in the distal portion before the bifurcation, there appears to be an 70% lesion. LVEDP: 7. IMPRESSION Multivessel coronary artery disease with left main disease by IVUS (4.0 millimeter squared signifying significant stenosis) Unstable angina. Peripheral artery disease. RECOMMENDATIONS Ms. Paris appears to have multivessel disease with left main disease. Because of this she will be recommended coronary artery bypass grafting. The case was discussed with the cardiothoracic surgical team and because she is on Plavix at home, we will attempt to stop this and plan for surgery early next week. She has been given a script for nitroglycerin and instructions on how to use it. If she needs to use a second nitroglycerin, she will present to the emergency room immediately. She also understands if her symptoms increase or are unrelieved by nitroglycerin, that she will call [phone] and our plan will need to be reevaluated for her revascularization. Will plan on holding her losartan three days before surgery per the recommendations. Thank you for allowing me to see Kathy Paris. If there are any questions, please do not hesitate to call. Kb Elaine DO VGTino/SARAH /9:47 PM /11:48 PM
--- NOTE | 2017-02-24 08:11 | MB ---
cc: LINO SWARTZ MD DATE OF CONSULTATION 02/23/2017 A [address] Salinas, also Dr. Pelaez. HISTORY OF THE PRESENT ILLNESS A very pleasant female that has been complaining of some chest discomfort off and on for the last couple of months. Pain would last maybe 15 minutes, pressure like in nature, located to the sternum, nonradiating. The pain is relieved with rest. Sometimes noticed with some shortness of breath. No nausea or vomiting. No syncope. No palpitations. She underwent nuclear stress test which was normal, EF of 69%. But then underwent coronary angiogram today which showed left main disease of 70%, proximal LAD 60%, the mid distal LAD 50%, the diagonal 90%. The circ 90. The RCA 70%. Echocardiogram showed an EF of 57%. No aortic regurgitation or insufficiency. Trivial to mild mitral regurgitation. Mild tricuspid regurgitation. EKG was normal sinus with some nonspecific ST-T changes. We were consulted to evaluate for coronary artery bypass grafting. PAST MEDICAL HISTORY The patient's past medical history includes: 1. Significant peripheral arterial disease. 2. Carotid artery disease. 3. Emphysema. 4. Diabetes mellitus. 5. With some peripheral neuropathy. 6. COPD. 7. Degenerative disk disease. 8. Hyperlipidemia. 9. Hypertension. 10. Hypothyroidism. PAST SURGICAL HISTORY Surgeries include: 1. Angioplasty. 2. Arthrectomy. 3. Cholecystectomy. 4. Colonoscopy. 5. She had a left carotid endarterectomy May 15, [address] Orr. 6. She has had fem pop bypass of the left on 08/05/2016, the right on 05/2016 using a synthetic device. ALLERGIES INCLUDE STATINS WHICH MAKE HER THROAT SWELL. MEDICATIONS Home medications include: 1. Aspirin 81 mg. 2. Atenolol 50. 3. Celebrex 200. 4. Plavix 75. 5. Fenofibrate 54 milligrams. 6. Fluconazole. 7. Levothyroxine. 8. Loratadine. 9. Losartan. 10. Magnesium. 11. Metformin. 12. Spiriva inhaler. FAMILY HISTORY Of heart disease and heart failure. SOCIAL HISTORY Rare alcohol. Former smoker. She smoked for 36 years, two packs a day. She quit at age 51. She is , lives with her significant other. Has four of her own children. REVIEW OF SYSTEMS GENERAL: No night sweats, fever, heat and cold intolerance. SKIN: No psoriasis, itching or hives. HEENT: No blurred vision, hearing loss. RESPIRATORY: Positive for shortness of breath. CARDIOVASCULAR: As above in HPI. GASTROINTESTINAL: No diarrhea, vomiting. GENITOURINARY: No burning, frequency, urgency. CENTRAL NERVOUS SYSTEM: No history of TIA, CVA, seizure disorder. ENDOCRINE: Positive for diabetes mellitus. PHYSICAL EXAMINATION VITAL SIGNS: Blood pressure 140/70, heart rate of 80, temperature max 98.1. GENERAL: Patient is awake, alert in no acute distress. HEENT: Head is normocephalic, atraumatic. She does wear partial. NECK: Supple. No JVD. She does have a well healed scar on the left. She does have a bruit on the left. CARDIOVASCULAR: Heart sounds S1-S2 regular rate and rhythm. No audible rubs, murmurs, gallops. LUNGS: Clear to auscultation. No wheezes, rales or rhonchi. ABDOMEN: Soft, nontender. No masses or organomegaly. EXTREMITIES: Reveal no cyanosis, clubbing or edema. I am able to palpate good distal pulses. She has got incisions on of her left medial lower thighs. LABORATORY DATA Lab work shows hemoglobin 8.3, hematocrit 27, white cell count 5.1, platelet count of 356. Sodium 137, potassium 4.2, BUN of 14, creatinine 0.91. INR 1.0. IMAGING Carotid ultrasound showed diffuse, mild, noncalcified right carotid plaque with 50-70% stenosis. Some postsurgical changes on the left with moderate 50-70% stenosis in the range velocities consistent more with less than 50% stenosis. Ultrasound of the lower extremities, suboptimal of the right fem vein due to the adjacent SFA calcification. No evidence of DVT. She did undergo pulmonary testing prior with Dr. Gutierrez which showed a FEV-1 of 2.20, mild obstructive defect. IMPRESSION This is a very pleasant 71-year-old patient underwent cardiac cath with multivessel disease. Planning will be for coronary artery bypass grafting three to four on March 09. STS data will be discussed and documented in the electronic record. The procedure, alternatives and risks have been discussed with the patient. She is willing to proceed. We will plan for surgery again on March 09. DICTATED BY: ARPIT Chaves Lino MARSH /5:53 PM /8:07 AM
[2017-02-24 18:53] LABS: HEMOGLOBIN A1a 1.8 %; HEMOGLOBIN A1b 2.1 %; HEMOGLOBIN Ao 83.5 %; HEMOGLOBIN P3 3.6 %
== END 2017-02-23 18:30 | disposition home or self-care (01) ==
LOC: HDIC 06:14 → HDOC 06:14
PROVIDERS: ATTEND Nuclear Medicine Nuclear Cardiology
DX: I70.209 Unspecified atherosclerosis of native arteries of extremities, unspecified extremity (principal); I65.29 Occlusion and stenosis of unspecified carotid artery; I25.110 Atherosclerotic heart disease of native coronary artery with unstable angina pectoris; R06.02 Shortness of breath; E78.5 Hyperlipidemia, unspecified; I10 Essential (primary) hypertension; E11.42 Type 2 diabetes mellitus with diabetic polyneuropathy; Z79.4 Long term (current) use of insulin; Z79.82 Long term (current) use of aspirin
CPT/HCPCS: 71020; 80048; 81001; 83036; 83540; 83550; 85025; 85610; 85730; 86850; 86900; 86901; 87641; 92978; 93005; 93454; 93880; 93970; 93998; C1753; C1769; C1893; J1644; J2250; J3010; J7040; Q9967

== ENCOUNTER 2017-03-05 05:32 | Inpatient (IN) | payer OTHER, MEDICARE ==
[~2017-03-05] VITALS: Ht 162.6 cm; Wt 78.0 kg
[2017-03-05] VITALS (16 sets, daily range): BP systolic 90–153; BP diastolic 45–71; PULSE 66–70; RESP 10–18; TEMP 97.1–97.9; O2SAT 94–98
[~2017-03-05 05:32] MED LIST changes: -ACIDCAP PO; -ASPI1TAB69 PO; +ASPI81CH CHEW; -LORA10TA PO; -ROSU10 PO; -SPIRCAP INH; +TIOT1AER INH
[2017-03-05] MEDS ORDERED: LACTATED RINGER'S 1000 ML IV PRN (06:00)
[2017-03-05] MEDS ORDERED: SODIUM CHLORIDE 0.9% FLUSH 10 ML FLUSH IV FLUSH PRN ×3 (06:00→12:00)
[2017-03-05] MEDS ORDERED: SODIUM CHLORID 0.9% 500 ML IV PRN (06:00)
[2017-03-05] MEDS ORDERED: PAPAVERINE 60 MG-NITROGLYCERIN 100 MCG-DILTIAZEM 100 MG in NS 100 ML IRRIGATION SCH ×4 (06:00)
[2017-03-05] MEDS ORDERED: CEFAZOLIN 500 MG in NS IRR BTL 500 ML IRRIGATION SCH (06:00)
[2017-03-05] MEDS ORDERED: POVIDONE IODINE 5% (ANTISEPSIS KIT) 4 APPLICATIONS EACH NARE PRN (06:00)
[2017-03-05] MEDS ORDERED: CHLORHEXIDINE GLUCONATE 4% SOLN 120 ML BTL TOPICAL SCH (06:00)
[2017-03-05] MEDS ORDERED: METOPROLOL TARTRATE 25 MG TAB PO PRN (06:00)
[2017-03-05] MEDS ORDERED: INSULIN REGULAR 100 UNITS in NS 100 ML IV PRN (06:00)
[2017-03-05] MEDS ORDERED: ceFAZolin 2 GM PREMIX 50 ML IV SCH (06:00)
[2017-03-05] MEDS ORDERED: CHLORHEXIDINE GLUCONATE 2 % 1 PACK (2 CLOTHS) TOPICAL PRN (06:00)
[2017-03-05] MEDS ORDERED: METOPROLOL TARTRATE 25 MG TAB PO SCH (06:00)
[2017-03-05] MEDS ORDERED: INSULIN HUMAN REGULAR 1,000 UNITS/10 ML VIAL SQ PRN (06:00)
[2017-03-05] MEDS ORDERED: ROSU10 PO (06:05)
[2017-03-05] MEDS ORDERED: HEPARIN SODIUM - SQ 10,000 UNITS/ML VIAL ONE (06:25)
[2017-03-05] MEDS ORDERED: VANCOMYCIN HCL 1000 MG VIAL ONE (06:25)
[2017-03-05] MEDS ORDERED: ceFAZolin 2 GM PREMIX 50 ML ONE (06:26)
[2017-03-05] MEDS ORDERED: BUPIVACAINE LIPOSO PF 1.3% INJ 20 ML, DEXAMETHASONE INJ 4 MG, MORPHINE INJ 8 MG in SODI... IRRIGATION SCH (07:15)
[2017-03-05] MEDS ORDERED: PHENYLEPH/NS 1000 MCG/10 ML SYR IV ONE (09:50)
[2017-03-05] MEDS ORDERED: ESMOLOL HCL 100 MG/10 ML VIAL IV ONE (09:50)
[2017-03-05] MEDS ORDERED: ePHEDrine/NS 25 MG/5 ML SYR IV ONE (09:50)
[2017-03-05] MEDS ORDERED: NORMOSOL R INJ 2,000 ML IV ONE (09:50)
[2017-03-05] MEDS ORDERED: ARTIFICIAL TEARS OPTH OINT 3.5 APPLIC/3.5 GM TUBO ONE (09:50)
[2017-03-05] MEDS ORDERED: HEPARIN SODIUM - SQ 10,000 UNITS/ML VIAL SQ ONE (09:50)
[2017-03-05] MEDS ORDERED: VECURONIUM BROMIDE 10 MG VIAL IV ONE (09:50)
[2017-03-05] MEDS ORDERED: CALCIUM CHLORIDE 10% SOLN 1 GRAM/10 ML SYR IV ONE (09:50)
[2017-03-05] MEDS ORDERED: fentaNYL CITRATE 1000 MCG/20 ML VIAL IV ONE (09:50)
[2017-03-05] MEDS ORDERED: MIDAZOLAM HCL 5 MG/ML VIAL (1 ML) IV ONE (09:50)
[2017-03-05] MEDS ORDERED: SODIUM BICARBONATE 8.4% INJ 50 MEQ/50 ML SYR IV ONE (09:50)
[2017-03-05] MEDS ORDERED: MAGNESIUM SULFATE 1 GM/2 ML VIAL IV ONE (09:50)
[2017-03-05] MEDS ORDERED: PROTAMINE SULFATE 250 MG/25 ML VIAL IV ONE (09:50)
[2017-03-05] MEDS ORDERED: LACTATED RINGER'S 1000 ML INJ 2,000 ML IV ONE (09:50)
[2017-03-05] MEDS ORDERED: TRANEXAMIC ACID INJ 1,000 MG/10 ML AMP IV ONE (09:50)
[2017-03-05] MEDS ORDERED: SODIUM CHLORIDE 0.9% INJ 200 ML IV ONE (09:50)
[2017-03-05] MEDS ORDERED: SODIUM CHLOR 0.9% 250 ML INJ 250 ML IV ONE (09:50)
[2017-03-05] MEDS ORDERED: DEXMEDETOMIDINE HCL 200 MCG/2 ML VIAL ONE (10:12)
[2017-03-05] MEDS ORDERED: SODIUM CHLORIDE 0.9% INJ 50 ML ONE (10:12)
[2017-03-05] MEDS ORDERED: ceFAZolin INJ 1,000 MG VIAL ONE (11:09)
[2017-03-05] MEDS ORDERED: DOBUTamine PREMIX DRIP 250 ML IV SCH (11:48)
[2017-03-05] MEDS ORDERED: LACTATED RINGER'S 1000 ML INJ 500 ML IV PRN (11:48)
--- NOTE | 2017-03-05 11:48 | PD.OP ---
cc: Stephen Perez MD; Kb Salinas DO Operative Report Date of Surgery: Mar 05, 2017 Preoperative Diagnosis: Postoperative Diagnosis: Procedure: 1. Off-pump Coronary Artery Bypass Grafting x 3 with Left Internal Mammary Artery (MASON) to the Left Anterior Descending (LAD), reverse saphenous vein graft to the Obtuse Marginal 1 (OM1), reverse saphenous vein graft to the Posterior Descending Artery (PDA) of the Right Coronary Artery 2. Left Leg Endoscopic Vein [place] 3. Intraoperative Vein Mapping 4. Multi-Level Intercostal Nerve Block. Surgeon: Stephen Perez Concierge Receptionist(s): Heriberto Langston Operation and Findings: PREPROCEDURE DIAGNOSES 1. Severe Multi-Vessel Coronary Artery Disease. 2. Left Main Stenosis 3. Anemia (Hgb 6.8) 4. Unstable Angina POSTPROCEDURE DIAGNOSES Same SURGICAL PROCEDURE 1. Off-pump Coronary Artery Bypass Grafting x 3 with Left Internal Mammary Artery (MASON) to the Left Anterior Descending (LAD), reverse saphenous vein graft to the Obtuse Marginal 1 (OM1), reverse saphenous vein graft to the Posterior Descending Artery (PDA) of the Right Coronary Artery 2. Left Leg Endoscopic Vein [place] 3. Intraoperative Vein Mapping 4. Multi-Level Intercostal Nerve Block. SURGEON Stephen Perez MD MANUFACTURING WEAVER ERAN [place] ANESTHESIA General endotracheal CLOTH COVERED HELMET PULLER MELANY Martin MD PREPARATION ChloraPrep. COUNTS Needle, sponge, and instrument counts were correct. DRAINS Two 32-Italian mediastinal tubes. COMPLICATIONS None. INDICATIONS FOR PROCEDURE The patient is a 71-year-old presenting with chest pain and multi-vessel coronary artery disease with associated left main stenosis. She is being brought to the operating room for surgical revascularization therapy. PROCEDURE Patient was brought to the operating room and placed supine on the OR table. Following the induction of adequate general endotracheal anesthesia and placement of appropriate monitoring devices, intraoperative vein mapping was performed which revealed suitable-caliber conduit in both legs. The patient was then prepped and draped in standard sterile fashion. Next, 2500 units of intravenous heparin was given. The left greater saphenous vein was harvested endoscopically from the calf. This appeared to be a useable-caliber conduit. Simultaneously, a median sternotomy was performed and the left internal mammary artery dissected free off the posterior sternal table. The patient was systemically heparinized and anticoagulation monitored by serial ACT measurements. The internal mammary artery had good pulsatile flow in it and was a decent-caliber conduit. The pericardium was then divided in the midline, the cradle created and targets analyzed. At this point, all anastomoses were performed in a beating-heart fashion using the Maquet stabilizing system. The left internal mammary artery was anastomosed to the distal LAD (1.75 mm) in an end-to-side fashion using 7-0 Prolene. The next segment was anastomosed to the OM1 (2 mm) in an end-to-side fashion using a running 7-0 Prolene. The final anastomosis was performed to the RPDA (2 mm) in an end-to-side fashion using a running 7-0 Prolene. The proximal anastomoses were then constructed to the ascending aorta in a running manner using 6-0 Prolene. All anastomotic sites were inspected and appeared to be hemostatic and patent. Protamine solution was given. Strict hemostasis was assured. The closure was undertaken. 2 chest tubes were placed. The pericardium was reapproximated in the midline. Bilateral multi- level intercostal nerve block was performed using Exparel solution. The sternum was approximated using sternal wires. The muscular and fascial layer were then closed in 3 layers. The endoscopic vein harvest site was closed in 2 layers. The patient tolerated the procedure well and was transferred to CVICU in stable condition. Stephen Perez MD Mar 05, 2017 11:47
[2017-03-05] MEDS ORDERED: POTASSIUM CHLORIDE 20 MEQ CONTROLLED RELEASE TAB PO PRN ×2 (12:00)
[2017-03-05] MEDS ORDERED: ACETAMINOPHEN 325 MG TAB PO PRN (12:00)
[2017-03-05] MEDS ORDERED: MAGNESIUM SULFATE INJ 2 GM in SODIUM CHLORIDE 0.9% INJ 100 ML IV PRN ×4 (12:00)
[2017-03-05] MEDS ORDERED: DEXMEDETOMIDINE INJ 200 MCG in SODIUM CHLORIDE 0.9% INJ 50 ML IV PRN (12:00)
[2017-03-05] MEDS ORDERED: CALCIUM CHLORIDE 10% 1 GRAM/10 ML VIAL IV PUSH PRN (12:00)
[2017-03-05] MEDS ORDERED: INSULIN REGULAR (IV INFUSION) 100 UNITS in SODIUM CHLORIDE 0.9% INJ 99 ML IV PRN (12:00)
[2017-03-05] MEDS ORDERED: DOPamine INJ PREMIX 500 ML IV PRN (12:00)
[2017-03-05] MEDS ORDERED: METOPROLOL TARTRATE 5 MG/5 ML VIAL IV PUSH PRN (12:00)
[2017-03-05] MEDS ORDERED: ACETAMINOPHEN 650 MG SUPP RECTAL PRN (12:00)
[2017-03-05] MEDS ORDERED: DEXTROSE 50% IN WATER 50 ML VIAL(D50) IV PUSH PRN (12:00)
[2017-03-05] MEDS ORDERED: SODIUM BICARBONATE 8.4% SOLN 50 MEQ/50 ML VIAL IV PUSH PRN ×2 (12:00)
[2017-03-05] MEDS ORDERED: NITROGLYCERIN-D5W 50 MG/250 ML 250 ML IV PRN (12:00)
[2017-03-05] MEDS ORDERED: PHENYLEPHRINE INJ 40 MG in DEXTROSE 5% IN WATE 500 ML INJ 496 ML IV PRN ×2 (12:00)
[2017-03-05] MEDS ORDERED: RESP: ALBUTEROL 2.5 MG/IPRATROPIUM 0.5 MG NEB (PRN) NEB ×2 (12:00→13:00)
[2017-03-05] MEDS ORDERED: POTASSIUM CHLOR 20 MEQ PREMIX 100 ML IV PRN ×3 (12:00)
[2017-03-05] MEDS ORDERED: hydrALAZINE HCL 20 MG/ML VIAL IV PUSH PRN (12:00)
[2017-03-05] MEDS ORDERED: RESP: RACEPINEPHRINE 2.25% 0.5 ML NEB NEB PRN ×2 (12:00→13:00)
[2017-03-05] MEDS ORDERED: MORPHINE SULFATE 4 MG/ML INJ IV PUSH PRN (12:00)
[2017-03-05] MEDS ORDERED: ALBUMIN 5% INJ 250 ML IV PRN (12:00)
[2017-03-05] MEDS ORDERED: MEPERIDINE HCL 25 MG/ML VIAL IV PUSH PRN (12:00)
[2017-03-05] MEDS ORDERED: Post-op Orders (for Pharmacy) MISC OTHER ONE (12:08)
--- NOTE | 2017-03-05 13:06 | PD.CAR.PN ---
CVT Progress Note Subjective/Hospital Course: 71/ female c/o of chest discomfort and dyspnea off and on x 3 months , she underwent outpt cath 02/23/[address] Salinas , found to have multi vessel disease 70% Left Main EF 57% . It was noted at that time HGB 8.3/ iron studies were done which showed Iron def anemia , preop this am her HGB 6.8/ she required 2 units PRBC prior to starting surgery. Hematology has been consulted to assist . PMH: CAD, PAD ( Left fem-pop bypass 08/05/16, right 06/03) , carotid disease with prior Left CEA 06/03, DM, peripheral neuropathy, COPD, DDD, HLP, HTN surgery: 03/05 Off-pump Coronary Artery Bypass Grafting x 3 with Left Internal Mammary Artery ( MASON) to the Left Anterior Descending (LAD), reverse saphenous vein graft to the Obtuse Marginal 1 (OM1), reverse saphenous vein graft to the Posterior Descending Artery (PDA) of the Right Coronary Artery, Left Leg Endoscopic Vein [place] Objective: Vital Signs Date Time Temp Pulse Resp B/P (MAP) Pulse Ox O2 Delivery O2 Flow Rate FiO2 03/05/17 12:48 70 03/05/17 12:35 97.9 70 14 90/48 (62) 96 107/45 (65) 03/05/17 12:23 97.9 03/05/17 12:12 94 40 03/05/17 06:11 99.1 69 18 156/65 (95) 92 (1) Coronary artery disease (2) Diabetes mellitus (3) Hyperlipemia (4) Hypertension (5) COPD (chronic obstructive pulmonary disease) (6) S/P CABG x 3 Maryann Gunderson Mar 05, 2017 13:06
--- NOTE | 2017-03-05 13:13 | HHI.FF ---
Face to Face Verification Diagnosis: (1) COPD (chronic obstructive pulmonary disease) (2) Coronary artery disease (3) Diabetes mellitus (4) Hyperlipemia (5) Hypertension (6) S/P CABG x 3 Physical Therapy Order: Evaluate and Treat Home Health Nursing Order: Signs/symptoms of disease process Diabetic education Medication education-adverse effect Wound care and dressing changes Nursing assessment with vital signs Instructions: Heart and Vascular Surgery patients *Special attention to sternal dressing Mandatory frequency Assess and evaluation, 4 days in a row The next week 3X week 2 times a week for 4 weeks 1 time a week for 5 weeks Schedule Heart and Vascular patients for full 60 day certification period Initial visit Review Open Heart Surgery Discharge Instructions (Sternal precautions, Activity, Elastic hose, Incision care, Driving, Incentive spirometry, Smoking, [place], Work and other) Need Betadine to paint incision Medication reconciliation Importance of follow up care/ check on appointments Make calendar record temperature daily When to call [facility] at Home nurse, review instructions, phone list Incentive Spirometry, demonstration Visit 1- Begin discharge instruction for patient family and/ or caregiver using teach back method- Signs and symptoms of infection Disease characteristics Medicines and side effects Foods and nutrition/ appetite Infection control/ hand washing/ hygiene Visit 2- Continue teaching Discharge instructions- include additional information on smoking cessation , sternal dressing (sternal vac) Visit 3- Continue teaching- Cough and deep breathing, incision monitoring. Choose my plate Visit 4- Continue teaching- Discuss limitations Discuss how they are feeling Discuss progress toward goals Remaining visits- continue teaching and monitoring PREVENA Single Use Negative Wound Therapy System Caregiver Instruction Sheet 1. A Prevena dressing system was applied to the chest incision during surgery , to promote wound healing. It works via a suction device (negative pressure wound therapy) to remove low to moderate levels of exudate (drainage) and infectious materials. We recommend that the device stay in place for up to seven days, from day of surgery. 2. Day of Surgery___03/05/17 Day of Removal ____03/12/17 3. The dressing should only be removed by a health child adolescent care. Please arrange removal of device to coincide with Home Health visit and or with Nursing staff at Rehab 4. If skin reddening or irritation of skin occurs, or excessive drainage, please notify the Cardiovascular Surgeons office at [phone]. 5. Light showering is permissible; however the pump should be disconnected and placed in safe location, where it will not get wet. The dressing should not be exposed to direct spray or submerged in water. No bath tub / shower only. Ensure the end of the tubing attached to the dressing is facing down so that water does not enter the top of the tube. 6. To remove Prevena dressing: press purple button to turn off device / remove the suction. Then disconnect the tubing from the pump. The fixation strips should be stretched away from the skin and the dressing lifted at one corner and peeled back until it has been fully removed. 7. After removal, it is ok to shower daily using liquid dial soap and clean wash cloth, rinse and pat dry, and leave incision open to air dry. For any concerns regarding Prevena dressing, and or wounds, please contact Carly Sands, patient navigator at [phone] or notify the Cardiovascular Surgeons office at [phone]. Incentive spirometry Q1 hr x 10, while awake, also use acapella device hourly whole awake Sternal Breast Bone Precautions: NO pushing or pulling, ( pt must use sternal pillow to support chest with all activities and with coughing ( takes up to 3 months breast bone to heal ) All females to wear sternal bra , launder as needed Daily incision care: ok to shower daily, no tub bath. Wash all incisions with liquid dial soap, clean wash cloth to each site, rinse and pat dry. Observe for any signs of infection, such as drainage which is dark yellow, [place], green or foul smelling. Immediately report to the surgeon any drainage from the chest incision, or legs, and for any abnormal drainage from the chest tube sites. Notify surgeon if any temp >101.5 degrees F. When specialty dressing removed/ or if you do not have one, continue to shower daily as above, then rinse and pat incision dry and paint with betadine daily x 5 days. Allow steri strips to fall off if you have any. Avoid lotions, creams, salves, oils, etc. for the first month Please see attached forms for additional instructions regarding post Open Heart specialty wound vacuum dressings. RAMON or Prevena , Dressing to be removed by Nursing staff on __03/12/17 F/U appointment: as per DC instructions: PCP in 2 weeks, CV surgeon 2 weeks, Director Business Intelligence 3-4 weeks For any questions regarding incisions/ dressing / meds / post op care or above Symptoms, Thursday 8am-5pm Heart & Vascular Surgery Office ( Dr. Perez & Dr. Easley), After Hours / Nights (5pm -8am) Weekends and Holidays Please call [facility] ([facility]) Charge Nurse I have seen patient Kathy Paris on 03/05/17. My clinical findings support the need for the requested home health care services because: Patient has SOB Deconditioned w/ increased weakness I certify that my clinical findings support that this patient is homebound because: Post-op weakness Maryann Gunderson Mar 05, 2017 13:13
--- NOTE | 2017-03-05 13:18 | RADRPT ---
EXAM DATE/TIME: 03/05/2017 12:52 [place] COMPARISON: CHEST PA & LAT, February 23, 2017, 17:38. INDICATIONS : Post open heart surgery. MEDICAL HISTORY : Hypercholesterolemia. Hypertension. Hypothyroidism. Diabetes. SURGICAL HISTORY : Coronary artery stent. Right ear surgery. Lumbar discectomy.Bilateral leg v ascular surgery. LT carotid endarterectomy. ENCOUNTER: Subsequent ACUITY: 1 day PAIN SCORE: Non-responsive. LOCATION: Bilateral chest FINDINGS: No ETT at the level of the clavicles. Mediastinal drains and left-sided chest tube in place. No signi ficant pneumothorax. Right IJ central line with tip in the SVC. Patchy parenchymal opacities in the l eft lower lung zone and right midlung zone. Cardiomediastinal contours are stable. Remainder of exam is unchanged. CONCLUSION: 1. Expected postoperative features with lines and tubes, as above. 2. Right midlung and left lower lung zone parenchymal opacities likely reflecting atelectasis. 3. No significant pneumothorax. Antonio Maurer MD on March 05, 2017 at 13:15 Board Certified Radiologist. This report was verified electronically.
[2017-03-05] MEDS ORDERED: DOPamine INJ PREMIX 500 ML IV ONE (13:32)
[2017-03-05] MEDS ORDERED: CALCIUM CHLORIDE INJ 1 GM in SODIUM CHLORIDE 0.9% INJ 100 ML IV PRN (14:00)
[2017-03-05] MEDS: ACETAMINOPHEN 1000 MG/100 ML 100 ML IV SCH ×2 (14:18→20:21)
[2017-03-05] MEDS ORDERED: RESP: ALBUTEROL 2.5 MG/IPRATROPIUM 0.5 MG NEB (SCH) NEB (16:00)
[2017-03-05] MEDS ORDERED: KETOROLAC TROMETHAMINE 30 MG/ML (IVP) VIAL IV PUSH PRN (16:00)
[2017-03-05] MEDS: RESP: ALBUTEROL 2.5 MG/IPRATROPIUM 0.5 MG NEB (SCH) NEB ×2 (16:00→22:22)
[2017-03-05] MEDS: ceFAZolin 2 GM PREMIX 50 ML IV SCH (16:00)
[2017-03-05] MEDS: ONDANSETRON HCL 4 MG/2 ML VIAL IV PUSH PRN (17:10)
[2017-03-05] MEDS: CLEVIDIPINE INJ 50 ML IV PRN (19:07)
[2017-03-05] MEDS: SODIUM CHLORIDE 0.9% FLUSH 10 ML FLUSH IV FLUSH SCH (20:23)
[2017-03-05] MEDS: AMIODARONE 200 MG TAB PO SCH (20:23)
--- NOTE | 2017-03-05 22:59 | MB ---
cc: GIANCARLO GONZALEZ MD KHANNA, SOHIT K. MD HWANG, DO Y. MD DATE OF CONSULTATION 03/05/17 DATE OF [address] Pelaez REASON FOR CONSULTATION Microcytic anemia associated with iron deficiency. CHIEF COMPLAINT Ms. Paris underwent a coronary artery bypass graft surgery earlier today (three-vessel). She tells me she has nausea but denies complaints of pain at this time. HISTORY OF PRESENT ILLNESS Ms. Paris is a very pleasant 71-year-old female who is originally from [place], [place], she moved down to [place] a little over a year ago. 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 She is and is a former smoker, having smoked about a pack a day for 35 years. She quit when she was [id number]. Ms. Paris developed increasing fatigue, weakness and angina-like chest pain about a week and a half ago and was evaluated at this facility by Dr. Kb Salinas for acute coronary syndrome. She underwent a coronary artery catheterization and was found to have multivessel coronary artery disease with the left main coronary artery vessel involved. She was recommended coronary artery bypass graft surgery. During that hospitalization blood work performed on 02/23/2017 revealed a hemoglobin of 8.3 gm/dl associated with an MCV of 68, RDW was elevated at 20% and she had red cell indices indicating iron deficiency. Furthermore, serum iron studies performed on 02/23/2017 revealed an iron level of 16, TIBC elevated at 671 and percent iron saturation of 2.4, ferritin level was also decreased. The patient was recommended coronary artery bypass graft surgery and this was performed earlier today (off pump). The patient tolerated surgery well, she is already out of bed (less than 12 hours after surgery). She is already sipping liquids. The hematology service has been asked to see her for further workup and evaluation. Additional historical details which are important include a previous history of colonoscopy; performed in the summer of 2015 in [place]. The patient denies noting any overt blood losses and specifically denies hematochezia, melena, hematuria, hematemesis or epistaxis. She reports having been on antiplatelet therapy but is not able to recall whether this was aspirin or Plavix or even both. PAST MEDICAL HISTORY 1. Type 2 diabetes. 2. Peripheral vascular disease requiring various revascularization procedures including a left-sided carotid endarterectomy. Various stents placed in her lower extremities bilaterally. 3. Hypertension. 4. Obesity. 5. Personal history of tobaccoism. 6. Dyslipidemia. 7. Emphysema. 8. Peripheral neuropathy. 9. Degenerative disc disease. 10. Hypothyroidism. PAST SURGICAL HISTORY 1. Coronary artery catheterization. 2. Angioplasty. 3. Carotid endarterectomy. 4. Cholecystectomy. 5. Bilateral lower extremity arterial stent placement. 6. Femoral-popliteal bypass surgery in July of 2016 (left side) as well as in May of 2016 (on the right side). ALLERGIES STATINS WHICH CAUSED ANAPHYLAXIS. SOCIAL HISTORY The patient is , she lives at home alone. She has four children, three sons and one daughter. She is a retired plc technician. FAMILY HISTORY Mother was a smoker and was diagnosed with throat "cancer" as well as lung cancer. Father is . No other oncologic diagnoses reported in the family. CURRENT INPATIENT MEDICATIONS 1. Tylenol 650 milligrams IV q. 6 hours as needed for pain. 2. human albumin IV as needed. 3. Cefazolin 2 grams IV x1 preoperatively. 4. Dobutamine 2.5 micrograms/kg per minute. 5. Dopamine IV titrated to maintain blood pressure per protocol. 6. Regular insulin sliding scale continuous infusion. 7. Ringer's lactate. 8. Magnesium sulfate replacement protocol. 9. Multivitamin injection. 10. Nitroglycerin IV titrated to maintain blood pressure per protocol. 11. 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 12. Phenylephrine 40 milligrams IV titration per protocol. 13. DuoNeb 1 ampule every 6 hours as needed. 14. Amiodarone 400 milligrams IV q. 12 hours. 15. Aspirin 81 milligrams daily. 16. Atorvastatin 20 milligrams p.o. daily. 17. Celebrex 200 milligrams p.o. daily. 18. Plavix 75 milligrams once a day. 19. Fenofibrate 48 milligrams p.o. daily. REVIEW OF SYSTEMS 13-point review of systems was obtained. The following are the pertinent positives: The patient reports having had fatigue, she denies having had weight loss, loss of appetite or other constitutional complaints before ____. Bleeding after surgery. HEENT: Denies headaches, blurry vision, difficulty swallowing, soreness of throat. RESPIRATORY: Reports exertional dyspnea, denies cough or hemoptysis, pleuritic chest pain. CARDIOVASCULAR: Reports angina-like chest pain, chest tightness and exertional dyspnea. She denies lower extremity edema. GI: Denies nausea, vomiting, diarrhea, hematochezia, melena, abdominal distension, hematemesis. : No complaints of dysuria, hematuria, urinary incontinence. 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 She does report peripheral neuropathy. MUSCULOSKELETAL: Chronic osteoarthritic complaints of knee pain, hip pain. PHYSICAL EXAMINATION VITAL SIGNS: Temperature 97.8 degrees Fahrenheit, heart rate 70 beats minute, respiratory rate 18 breaths per minute, blood pressure 130/71, O2 sat 98% on 3 liters nasal cannula. GENERAL APPEARANCE: Ms. Paris is an elderly lady, she is sitting up on the bedside recliner. She is awake and alert. She speaks to me in full sentences. HEENT: Head is atraumatic, normocephalic, conjunctive are pale, sclerae are anicteric, EOMI, PERRLA, oral exam no pharyngeal erythema. NECK: Neck exam no palpable cervical or supraclavicular adenopathy. RESPIRATORY EXAM: Good air movement bilaterally. No added breath sounds. CARDIOVASCULAR: Regular rate and rhythm, S1-S2. No obvious murmurs, rubs, gallops. ABDOMINAL EXAM: Protuberant belly, soft and nontender, nondistended. No palpable organ enlargement. CHEST EXAMINATION: She has a wound VAC type device noted on her sternum. She has triple-lumen venous catheter in her right IJ. ABDOMEN: Protuberant belly, soft, no obvious tenderness. No organ enlargement. EXTREMITIES: No pretibial edema. No calf tenderness. The surgical dressing is noted with compression stockings on her left leg. STAVE AND BOLT EQUALIZER: No focal sensory deficits. LABORATORY FINDINGS Blood work dated 02/23/2017: WBC count 5.1, 8.3 gm/dl, hematocrit 27.7%, MCV 68, MCH 20.5, RDW 20, platelet count 356, absolute neutrophil count is 3.2. Chemistries: Sodium 137, potassium 4.2, chloride 104, bicarbonate 25.4, BUN 14, creatinine 0.91, and glucose 136. Iron level 16, TIBC 671, percent iron saturation 2.4%. ASSESSMENT Ms. Paris is a 71-year-old female with multiple medical comorbid conditions including type 2 diabetes, hyperlipidemia, personal history of tobaccoism, emphysema, coronary artery disease, peripheral arterial disease and iron-deficiency anemia. She was admitted to [facility] for coronary artery bypass graft surgery for management of unstable angina. She required triple-vessel coronary artery bypass graft surgery. The hematology service has been asked to see her to further manage the iron deficiency anemia and to help determine the etiology of this. RECOMMENDATIONS 1. Iron-deficiency anemia: I will request repeat CBC. Given the acute setting of her having undergone coronary artery bypass graft surgery I would recommend she be transfused to maintain hemoglobin over 8.5 gm/dl or higher should her thoracic surgeon advise high levels. It may be reasonable to give her intravenous iron replacement therapy but intravenous iron will not result in a meaningful improvement in her hemoglobin and hematocrit for at least 10 to 14 days. I will request her colonoscopy reports from [facility], she reports having had a colonoscopy done within the last one and a half years. When she has recovered sufficiently from her coronary artery bypass graft surgery she will require a GI workup to rule out a culprit lesion within the GI tract which has resulted in her iron efficiency. I will follow the patient closely with you while she is in the hospital. MD ENIO Gorman/DIONI /9:50 PM /10:19 PM
[2017-03-06] VITALS (19 sets, daily range): BP systolic 102–153; BP diastolic 42–83; PULSE 64–80; RESP 16–18; TEMP 97.3–97.9; O2SAT 92–100
[2017-03-06] MEDS: ceFAZolin 2 GM PREMIX 50 ML IV SCH ×3 (00:36→15:03)
[2017-03-06] MEDS: CLEVIDIPINE INJ 50 ML IV PRN (01:00)
[2017-03-06] MEDS: ACETAMINOPHEN 1000 MG/100 ML 100 ML IV SCH ×2 (02:32→08:38)
[2017-03-06] MEDS: RESP: ALBUTEROL 2.5 MG/IPRATROPIUM 0.5 MG NEB (SCH) NEB ×3 (04:08→20:11)
[2017-03-06 05:08] LABS: HEMATOCRIT 27.5 % (35.0-46.0); MEAN CELL VOLUME 73.9 FL (80.0-100.0); MEAN CORPUSCULAR HEMOGLOBIN 23.2 PG (27.0-34.0); MEAN CORPUSCULAR HGB CONC 31.4 % (32.0-36.0); PLATELET COUNT 240 TH/MM3 (150-450); RED BLOOD COUNT 3.72 MIL/MM3 (4.00-5.30); RED CELL DISTRIBUTION WIDTH 22.4 % (11.6-17.2); REVIEW FLAG FINAL; WHITE BLOOD COUNT 13.1 TH/MM3 (4.0-11.0)
[2017-03-06 05:40] LABS: BICARBONATE 26.1 MEQ/L (21.0-32.0); MAGNESIUM 1.9 MG/DL (1.5-2.5); POTASSIUM 4.6 MEQ/L (3.5-5.1)
--- NOTE | 2017-03-06 06:03 | RADRPT ---
EXAM DATE/TIME: 03/06/2017 03:50 [facility] COMPARISON: CHEST SINGLE AP, March 05, 2017, 12:52. INDICATIONS : Chest pain post CABG MEDICAL HISTORY : Hypercholesterolemia. Hypertension Diabetes mellitus type II. Hypothyroidism SURGICAL HISTORY : Coronary artery stent. Discectomy, lumbar. LT carotid endarterectomy. ENCOUNTER: Subsequent ACUITY: 2 days PAIN SCORE: Non-responsive. LOCATION: Bilateral chest FINDINGS: A single view of the chest demonstrates minimal left basilar density. Status post CABG. Left sided ch est tube and mediastinal chest tube are stable. No pneumothorax. Right jugular central line stable. E ndotracheal tube removed. Osseous structures are intact. CONCLUSION: 1. Status post CABG. 2. Support lines and tubes as above. 3. Left basal atelectasis. Dirk Gallardo MD on March 06, 2017 at 6:01 Board Certified Radiologist. This report was verified electronically.
[2017-03-06] MEDS: PANTOPRAZOLE SOD 40 MG DELAYED RELEASE TAB PO SCH (06:25)
[2017-03-06] MEDS: LEVOTHYROXINE SODIUM 75 MCG TAB PO SCH (06:27)
[2017-03-06] MEDS: FENOFIBRATE 48 MG TAB PO SCH (08:38)
[2017-03-06] MEDS: ACETAMINOPHEN/HYDROcodone 325 MG/5 MG TAB PO PRN ×4 (08:39→21:10)
[2017-03-06] MEDS: AMIODARONE 200 MG TAB PO SCH ×2 (08:44→21:08)
[2017-03-06] MEDS: CLOPIDOGREL 75 MG TAB PO SCH (08:45)
[2017-03-06] MEDS: SODIUM CHLORIDE 0.9% FLUSH 10 ML FLUSH IV FLUSH SCH ×2 (08:46→21:08)
[2017-03-06] MEDS: ASPIRIN 81 MG CHEW TAB PO SCH (08:46)
[2017-03-06] MEDS ORDERED: MULTIVITAMIN INJ 10 ML, THIAMINE INJ 500 MG, FOLIC ACID INJ 1 MG in SODIUM CHLORID 0.9%... IV SCH (09:00)
[2017-03-06] MEDS ORDERED: CELECOXIB 200 MG CAP PO SCH (09:00)
[2017-03-06] MEDS ORDERED: ATORVASTATIN 20 MG TAB PO SCH (09:00)
[2017-03-06] MEDS ORDERED: BISACODYL 10 MG SUPP RECTAL PRN (09:00)
[2017-03-06] MEDS ORDERED: SOD PHOSPHATE/SOD BIPHOSPHATE (ADULT) ENEMA 133ML RECTAL PRN (09:00)
[2017-03-06] MEDS ORDERED: DEXTROSE 50% IN WATER 50 ML VIAL(D50) IV PUSH PRN (09:00)
[2017-03-06] MEDS ORDERED: GLUCAGON 1 MG/ML VIAL OTHER PRN (09:00)
--- NOTE | 2017-03-06 09:21 | PD.ONC.PN ---
Subjective Subjective Remarks Patient seen and examined, vital signs reviewed, overnight events reviewed as well. She reports feeling well, she sitting up on a recliner at bedside. There were no acute cardiopulmonary events overnight. The patient reports her pain is well-controlled. There has been no overt bleeding. Objective Data Date Time Temp Pulse Resp B/P (MAP) Pulse Ox O2 Delivery O2 Flow Rate FiO2 03/06/17 08:00 94 Nasal Cannula 5.00 03/06/17 08:00 71 03/06/17 08:00 97.6 71 16 124/64 (84) 92 127/42 (70) 03/06/17 03:50 65 03/06/17 03:48 96 Nasal Cannula 4.00 03/06/17 03:48 97.6 65 18 116/56 (76) 99 153/51 (85) 03/06/17 01:00 66 154/55 03/05/17 23:30 97.1 70 16 135/64 (87) 95 153/48 (83) 03/05/17 23:30 95 Nasal Cannula 3.00 03/05/17 23:20 70 03/05/17 22:22 98 Nasal Cannula 3.00 03/05/17 19:30 98 Nasal Cannula 3.00 03/05/17 19:30 97.8 70 18 130/71 (90) 98 138/49 (78) 03/05/17 19:00 66 03/05/17 17:34 14 03/05/17 16:59 Nasal Cannula 4.00 03/05/17 15:23 69 03/05/17 15:17 97.5 70 12 129/67 (87) 97 130/52 (78) 03/05/17 15:14 12 03/05/17 14:56 98 Nasal Cannula 4 03/05/17 14:00 97.8 69 10 129/67 (87) 98 123/48 (73) 03/05/17 13:50 97.7 03/05/17 13:08 97 40 03/05/17 12:48 70 03/05/17 12:35 97.9 70 14 90/48 (62) 96 107/45 (65) 03/05/17 12:31 97 50 03/05/17 12:23 94 60 03/05/17 12:23 97.9 03/05/17 12:12 94 40 03/06/17 03/06/17 03/06/17 07:00 15:00 23:00 Intake Total 612 ml Output Total 630 ml Balance -18 ml Result Diagram: 03/06/1741903/06/17 042 Laboratory Results Laboratory Tests Test 03/06/17 04:20 White Blood Count 13.1 TH/MM3 Red Blood Count 3.72 MIL/MM3 Hemoglobin 8.6 GM/DL Hematocrit 27.5 % Mean Corpuscular Volume 73.9 FL Mean Corpuscular Hemoglobin 23.2 PG Mean Corpuscular Hemoglobin Concent 31.4 % Red Cell Distribution Width 22.4 % Platelet Count 240 TH/MM3 Mean Platelet Volume 7.3 FL Blood Urea Nitrogen 11 MG/DL Creatinine 0.62 MG/DL Random Glucose 102 MG/DL Calcium Level 8.1 MG/DL Magnesium Level 1.9 MG/DL Sodium Level 140 MEQ/L Potassium Level 4.6 MEQ/L Chloride Level 107 MEQ/L Carbon Dioxide Level 26.1 MEQ/L Anion Gap 7 MEQ/L Estimat Glomerular Filtration Rate 95 ML/MIN Imaging Studies Last 24 hours Impressions Chest X-Ray 03/06/17 0500 Signed Impressions: Service Date/Time: Monday, March 06, 2017 03:50 - CONCLUSION: 1. Status post CABG. 2. Support lines and tubes as above. 3. Left basal atelectasis. Dirk Gallardo MD Administered Medications Medications (Trade) Dose Ordered Sig/Isabel Route PRN Reason Start Time Stop Time Status Last Admin Dose Admin Sodium Chloride (NS Flush) 2 ml BID IV FLUSH 03/05/17 21:00 03/06/17 08:46 Clevidipine 50 ml @ 2 mls/hr TITRATE PRN IV Maintain BP < 140/90 mmHg 03/05/17 12:00 03/06/17 01:00 Aspirin (Aspirin Chew) 81 mg DAILY PO 03/06/17 09:00 03/06/17 08:46 Clopidogrel Bisulfate (Plavix) 75 mg DAILY PO 03/06/17 09:00 03/06/17 08:45 Pantoprazole Sodium (Protonix) 40 mg DAILY@06 PO 03/06/17 06:00 03/06/17 06:25 Amiodarone HCl (Cordarone) 400 mg Q12HR PO 03/05/17 21:00 03/06/17 08:44 Acetaminophen/ Hydrocodone Bitart (Barnard 5-325 Mg) 1 tab Q3H PRN PO PAIN SCALE 1 TO 5 03/05/17 12:00 03/06/17 08:39 Ondansetron HCl (Zofran Inj) 4 mg Q6H PRN IV PUSH NAUSEA OR VOMITING 03/05/17 12:00 03/05/17 17:10 Cefazolin Sodium/ Dextrose 50 ml @ 100 mls/hr Q8H IV 03/05/17 16:00 03/07/17 00:29 03/06/17 08:46 Levothyroxine Sodium (Synthroid) 75 mcg DAILY@0600 PO 03/06/17 06:00 03/06/17 06:27 Fenofibrate (Tricor) 48 mg DAILY PO 03/06/17 09:00 03/06/17 08:38 Objective Remarks GENERAL APPEARANCE: Ms. Paris is an elderly lady, she is sitting up on the bedside recliner. She is awake and alert. She speaks to me in full sentences. HEENT: Head is atraumatic, normocephalic, conjunctive are pale, sclerae are anicteric, EOMI, PERRLA, oral exam no pharyngeal erythema. NECK: Neck exam no palpable cervical or supraclavicular adenopathy. RESPIRATORY EXAM: Good air movement bilaterally. No added breath sounds. CARDIOVASCULAR: Regular rate and rhythm, S1-S2. No obvious murmurs, rubs, gallops. ABDOMINAL EXAM: Protuberant belly, soft and nontender, nondistended. No palpable organ enlargement. CHEST EXAMINATION: She has a wound VAC type device noted on her sternum. She has triple-lumen venous catheter in her right IJ. ABDOMEN: Protuberant belly, soft, no obvious tenderness. No organ enlargement. EXTREMITIES: No pretibial edema. No calf tenderness. The surgical dressing is noted with compression stockings on her left leg. 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 Assessment/Plan Assessment Ms. Paris is a 71-year-old female with multiple medical comorbid conditions including type 2 diabetes, hyperlipidemia, personal history of tobaccoism, emphysema, coronary artery disease, peripheral arterial disease and iron-deficiency anemia. She was admitted to [facility] for coronary artery bypass graft surgery for management of unstable angina. She required triple-vessel coronary artery bypass graft surgery. The hematology service has been asked to see her to further manage the iron deficiency anemia and to help determine the cause. Plan 1. Microcytic anemia secondary to iron deficiency: Her hemoglobin is stable at 8.7 g/dL this morning. No evidence of active bleeding. Clinically she is doing very well and recovering from her triple-vessel CABG performed yesterday. She is on dual antiplatelet therapy with aspirin and Plavix. I did speak to her thoracic surgeon this morning and he advised continued surveillance and monitoring so long as her hemoglobin remains over 8 g/dL. I will therefore avoid red cell transfusions unless there is a strong indication to transfuse for hemoglobin greater than 8 g/dL. And anemia workup will be initiated after she recovers from her CABG surgery; this will initially involve a GI workup to rule out a GI source of bleeding. Arnold Zacarias MD Mar 06, 2017 09:21
[2017-03-06] MEDS: ONDANSETRON HCL 4 MG/2 ML VIAL IV PUSH PRN ×2 (10:29→18:15)
[2017-03-06] MEDS: INSULIN ASPART SUPPLEMENTAL SCALE SQ SCH ×4 (10:45→21:24)
[2017-03-06] MEDS: FLUTICASONE PROPIONATE 50 MCG/ACT 16 GM NASAL SPRAY EACH NARE SCH ×2 (12:00→21:00)
[2017-03-06] MEDS: MAGNESIUM HYDROXIDE SUSP 30 ML CUP PO SCH (12:43)
[2017-03-06] MEDS: metFORMIN HCL 500 MG TAB PO SCH ×2 (12:44→18:02)
[2017-03-06] MEDS: MULTIVITAMINS/MINERALS THERAPEUTIC TAB PO SCH (12:44)
[2017-03-06] MEDS: LOSARTAN 25 MG TAB PO SCH (12:44)
[2017-03-06] MEDS: METOPROLOL TARTRATE 25 MG TAB PO SCH ×2 (12:44→21:08)
--- NOTE | 2017-03-06 15:51 | PD.CAR.PN ---
CVT Progress Note Subjective/Hospital Course: 71/ female c/o of chest discomfort and dyspnea off and on x 3 months , she underwent outpt cath 02/23/[address] Salinas , found to have multi vessel disease 70% Left Main EF 57% . It was noted at that time HGB 8.3/ iron studies were done which showed Iron def anemia , preop this am her HGB 6.8/ she required 2 units PRBC prior to starting surgery. Hematology has been consulted to assist . PMH: CAD, PAD ( Left fem-pop bypass 08/05/16, right 06/03) , carotid disease with prior Left CEA 06/03, DM, peripheral neuropathy, COPD, DDD, HLP, HTN surgery: 03/05 Off-pump Coronary Artery Bypass Grafting x 3 with Left Internal Mammary Artery ( MASON) to the Left Anterior Descending (LAD), reverse saphenous vein graft to the Obtuse Marginal 1 (OM1), reverse saphenous vein graft to the Posterior Descending Artery (PDA) of the Right Coronary Artery, Left Leg Endoscopic Vein [place] 03/06 doing well, up in chair, ambulated today leave chest tubes in , start low dose BB , resume cozaar weaned off cleviprex pulm toileting transfer to stepdown Objective: GENERAL: SKIN: Warm and dry. prevena dressing to chest , incision intact to left leg HEAD: Normocephalic. EYES: No scleral icterus. No injection or drainage. NECK: Supple, trachea midline. No JVD or lymphadenopathy. CARDIOVASCULAR: Regular rate and rhythm without murmurs, gallops, or rubs. RESPIRATORY: Breath sounds equal bilaterally. No accessory muscle use. chest tube to 20cm suction, no air leak / drained 220cc/ 12 hrs GASTROINTESTINAL: Abdomen soft, non-tender, nondistended. MUSCULOSKELETAL: No cyanosis, or edema. BACK: Nontender without obvious deformity. No CVA tenderness. Vital Signs Date Time Temp Pulse Resp B/P (MAP) Pulse Ox O2 Delivery O2 Flow Rate FiO2 03/06/17 15:07 97.3 70 16 108/50 (69) 94 03/06/17 15:07 93 Nasal Cannula 2.00 03/06/17 14:30 95 Nasal Cannula 2.00 03/06/17 14:30 64 03/06/17 13:06 96 Nasal Cannula 2.00 03/06/17 13:06 97.4 77 16 147/67 (93) 96 Arterial Line 03/06/17 11:00 97.8 72 16 147/67 (93) 100 03/06/17 11:00 96 Nasal Cannula 3.00 03/06/17 11:00 68 03/06/17 09:30 16 03/06/17 09:30 70 123/44 03/06/17 08:00 94 Nasal Cannula 5.00 03/06/17 08:00 71 03/06/17 08:00 97.6 71 16 124/64 (84) 92 127/42 (70) 03/06/17 03:50 65 03/06/17 03:48 96 Nasal Cannula 4.00 03/06/17 03:48 97.6 65 18 116/56 (76) 99 153/51 (85) 03/06/17 01:00 66 154/55 03/05/17 23:30 97.1 70 16 135/64 (87) 95 153/48 (83) 03/05/17 23:30 95 Nasal Cannula 3.00 03/05/17 23:20 70 03/05/17 22:22 98 Nasal Cannula 3.00 03/05/17 19:30 98 Nasal Cannula 3.00 03/05/17 19:30 97.8 70 18 130/71 (90) 98 138/49 (78) 03/05/17 19:00 66 03/05/17 17:34 14 03/05/17 16:59 Nasal Cannula 4.00 Labs: Laboratory Tests Test 03/06/17 04:20 White Blood Count 13.1 TH/MM3 (4.0-11.0) Red Blood Count 3.72 MIL/MM3 (4.00-5.30) Hemoglobin 8.6 GM/DL (11.6-15.3) Hematocrit 27.5 % (35.0-46.0) Mean Corpuscular Volume 73.9 FL (80.0-100.0) Mean Corpuscular Hemoglobin 23.2 PG (27.0-34.0) Mean Corpuscular Hemoglobin Concent 31.4 % (32.0-36.0) Red Cell Distribution Width 22.4 % (11.6-17.2) Platelet Count 240 TH/MM3 (150-450) Mean Platelet Volume 7.3 FL (7.0-11.0) Blood Urea Nitrogen 11 MG/DL (7-18) Creatinine 0.62 MG/DL (0.50-1.00) Random Glucose 102 MG/DL (74-106) Calcium Level 8.1 MG/DL (8.5-10.1) Magnesium Level 1.9 MG/DL (1.5-2.5) Sodium Level 140 MEQ/L (136-145) Potassium Level 4.6 MEQ/L (3.5-5.1) Chloride Level 107 MEQ/L (98-107) Carbon Dioxide Level 26.1 MEQ/L (21.0-32.0) Anion Gap 7 MEQ/L (5-15) Estimat Glomerular Filtration Rate 95 ML/MIN (>89) Result Diagram: 03/06/1741903/06/17419 Telemetry: NSR (1) Coronary artery disease (2) S/P CABG x 3 Plan: ASA, resume home med of crestor start BB OOB, ambulate leave chest tubes in (3) Diabetes mellitus Plan: diabetic diet, resume metformin (4) Hyperlipemia Plan: resume home crestor (5) Hypertension Plan: restart cozaar (6) COPD (chronic obstructive pulmonary disease) Plan: Jalyn keller Jacqueline R. ARNP Mar 06, 2017 15:51
--- NOTE | 2017-03-06 19:09 | EKG ---
Date Performed: 03/06/2017 Time Performed: 10:48:30 PTAGE: 71 years EKG: Sinus rhythm . Normal ECG PREVIOUS TRACING : 02/23/2017 07.22 Compared to prior tracing no significant change DOCTOR: Dain Johnson Interpretating Date/Time 03/06/2017 19:08:06
[2017-03-06] MEDS: SENNOSIDES 8.6 MG TAB PO SCH (21:08)
[2017-03-06] MEDS: DOCUSATE SODIUM 100 MG CAP PO SCH (21:08)
[2017-03-07] VITALS (30 sets, daily range): BP systolic 108–156; BP diastolic 54–83; PULSE 71–88; RESP 16–20; TEMP 97.5–98.7; O2SAT 93–97
[2017-03-07] MEDS: ceFAZolin 2 GM PREMIX 50 ML IV SCH (00:02)
[2017-03-07] MEDS: INSULIN ASPART SUPPLEMENTAL SCALE SQ SCH ×5 (02:00→21:00)
[2017-03-07] MEDS: ACETAMINOPHEN/HYDROcodone 325 MG/5 MG TAB PO PRN ×4 (02:23→21:07)
[2017-03-07] MEDS: ONDANSETRON HCL 4 MG/2 ML VIAL IV PUSH PRN (02:23)
[2017-03-07] MEDS: LEVOTHYROXINE SODIUM 75 MCG TAB PO SCH (05:11)
[2017-03-07] MEDS: PANTOPRAZOLE SOD 40 MG DELAYED RELEASE TAB PO SCH (05:11)
[2017-03-07 05:53] LABS: AUTOMATED NEUTROPHIL # 8.8 TH/MM3 (1.8-7.7); BASOPHIL % 0.2 % (0.0-2.0); EOSINOPHIL # 0.2 TH/MM3 (0-0.4); EOSINOPHIL % 2.1 % (0.0-4.0); HEMO FLAGS DIFF FINAL; LYMPH % 10.4 % (9.0-44.0); LYMPHOCYTE # 1.1 TH/MM3 (1.0-4.8); MEAN CELL VOLUME 72.8 FL (80.0-100.0); MEAN CORPUSCULAR HEMOGLOBIN 22.9 PG (27.0-34.0); MEAN CORPUSCULAR HGB CONC 31.5 % (32.0-36.0); MONO % 7.1 % (0.0-8.0); NEUT % 80.2 % (16.0-70.0); PLATELET COUNT 223 TH/MM3 (150-450); RED BLOOD COUNT 3.16 MIL/MM3 (4.00-5.30); RED CELL DISTRIBUTION WIDTH 23.2 % (11.6-17.2)
[2017-03-07 06:07] LABS: MAGNESIUM 2.3 MG/DL (1.5-2.5); POTASSIUM 4.5 MEQ/L (3.5-5.1)
[2017-03-07] MEDS: RESP: ALBUTEROL 2.5 MG/IPRATROPIUM 0.5 MG NEB (SCH) NEB ×3 (08:05→20:23)
[2017-03-07] MEDS ORDERED: ACETAMINOPHEN 325 MG TAB PO PRN (08:15)
[2017-03-07] MEDS ORDERED: diphenhydrAMINE HCL 25 MG CAP PO PRN (08:15)
[2017-03-07] MEDS ORDERED: SODIUM CHLOR 0.9% 250 ML INJ 250 ML IV ONE (08:15)
[2017-03-07] MEDS: CRESTOR 10 MG PO SCH (09:00)
--- NOTE | 2017-03-07 09:26 | PD.CAR.PN ---
CVT Progress Note Subjective/Hospital Course: 71/ female c/o of chest discomfort and dyspnea off and on x 3 months , she underwent outpt cath 02/23/[address] Salinas , found to have multi vessel disease 70% Left Main EF 57% . It was noted at that time HGB 8.3/ iron studies were done which showed Iron def anemia , preop this am her HGB 6.8/ she required 2 units PRBC prior to starting surgery. Hematology has been consulted to assist . PMH: CAD, PAD ( Left fem-pop bypass 08/05/16, right 06/03) , carotid disease with prior Left CEA 06/03, DM, peripheral neuropathy, COPD, DDD, HLP, HTN surgery: 03/05 Off-pump Coronary Artery Bypass Grafting x 3 with Left Internal Mammary Artery ( MASON) to the Left Anterior Descending (LAD), reverse saphenous vein graft to the Obtuse Marginal 1 (OM1), reverse saphenous vein graft to the Posterior Descending Artery (PDA) of the Right Coronary Artery, Left Leg Endoscopic Vein [place] 03/06 doing well, up in chair, ambulated today leave chest tubes in , start low dose BB , resume cozaar weaned off cleviprex pulm toileting transfer to stepdown 03/07 Doing well Remains anemic. Will transfuse 2 units PRBC Greatly appreciate Hematology input Ambulate Maintain CT. Likely D/C in am Objective: Vital Signs Date Time Temp Pulse Resp B/P (MAP) Pulse Ox O2 Delivery O2 Flow Rate FiO2 03/07/17 08:06 97 Nasal Cannula 2.00 03/07/17 06:02 72 03/07/17 05:34 74 03/07/17 04:10 71 03/07/17 03:45 98.2 76 16 108/54 (72) 94 03/07/17 03:45 94 Nasal Cannula 2.00 03/07/17 03:45 71 03/07/17 02:08 71 03/07/17 01:10 72 03/07/17 00:09 73 03/06/17 23:35 73 03/06/17 23:15 94 Nasal Cannula 2.00 03/06/17 23:15 97.9 76 16 105/83 (90) 94 03/06/17 22:08 75 03/06/17 21:45 80 10/20/17 20:15 68 03/06/17 20:13 98 Nasal Cannula 2.00 03/06/17 19:39 69 03/06/17 19:15 94 Nasal Cannula 2.00 03/06/17 19:15 97.6 71 16 102/50 (67) 94 03/06/17 18:00 70 03/06/17 17:32 69 03/06/17 16:26 67 03/06/17 15:07 97.3 70 16 108/50 (69) 94 03/06/17 15:07 93 Nasal Cannula 2.00 03/06/17 15:00 66 03/06/17 14:30 95 Nasal Cannula 2.00 03/06/17 14:30 64 03/06/17 13:06 96 Nasal Cannula 2.00 03/06/17 13:06 97.4 77 16 147/67 (93) 96 Arterial Line 03/06/17 11:00 97.8 72 16 147/67 (93) 100 03/06/17 11:00 96 Nasal Cannula 3.00 03/06/17 11:00 68 03/06/17 09:30 16 03/06/17 09:30 70 123/44 Labs: Laboratory Tests Test 03/07/17 05:00 White Blood Count 11.0 TH/MM3 (4.0-11.0) Red Blood Count 3.16 MIL/MM3 (4.00-5.30) Hemoglobin 7.2 GM/DL (11.6-15.3) Hematocrit 23.0 % (35.0-46.0) Mean Corpuscular Volume 72.8 FL (80.0-100.0) Mean Corpuscular Hemoglobin 22.9 PG (27.0-34.0) Mean Corpuscular Hemoglobin Concent 31.5 % (32.0-36.0) Red Cell Distribution Width 23.2 % (11.6-17.2) Platelet Count 223 TH/MM3 (150-450) Mean Platelet Volume 7.2 FL (7.0-11.0) Neutrophils (%) (Auto) 80.2 % (16.0-70.0) Lymphocytes (%) (Auto) 10.4 % (9.0-44.0) Monocytes (%) (Auto) 7.1 % (0.0-8.0) Eosinophils (%) (Auto) 2.1 % (0.0-4.0) Basophils (%) (Auto) 0.2 % (0.0-2.0) Neutrophils # (Auto) 8.8 TH/MM3 (1.8-7.7) Lymphocytes # (Auto) 1.1 TH/MM3 (1.0-4.8) Monocytes # (Auto) 0.8 TH/MM3 (0-0.9) Eosinophils # (Auto) 0.2 TH/MM3 (0-0.4) Basophils # (Auto) 0.0 TH/MM3 (0-0.2) CBC Comment DIFF FINAL Differential Comment Blood Urea Nitrogen 15 MG/DL (7-18) Creatinine 1.00 MG/DL (0.50-1.00) Random Glucose 88 MG/DL (74-106) Calcium Level 8.3 MG/DL (8.5-10.1) Magnesium Level 2.3 MG/DL (1.5-2.5) Sodium Level 136 MEQ/L (136-145) Potassium Level 4.5 MEQ/L (3.5-5.1) Chloride Level 100 MEQ/L (98-107) Carbon Dioxide Level 31.0 MEQ/L (21.0-32.0) Anion Gap 5 MEQ/L (5-15) Estimat Glomerular Filtration Rate 55 ML/MIN (>89) Result Diagram: 03/07/17 0500 03/07/17 0500 (1) Coronary artery disease (2) S/P CABG x 3 Plan: ASA, resume home med of crestor start BB OOB, ambulate leave chest tubes in (3) Diabetes mellitus Plan: diabetic diet, resume metformin (4) Hyperlipemia Plan: resume home crestor (5) Hypertension Plan: restart cozaar (6) COPD (chronic obstructive pulmonary disease) Plan: Chris keller Sohit K. MD Mar 07, 2017 09:26
[2017-03-07] MEDS: AMIODARONE 200 MG TAB PO SCH ×2 (09:33→21:07)
[2017-03-07] MEDS: FLUTICASONE PROPIONATE 50 MCG/ACT 16 GM NASAL SPRAY EACH NARE SCH ×2 (09:33→21:00)
[2017-03-07] MEDS: MULTIVITAMINS/MINERALS THERAPEUTIC TAB PO SCH (09:33)
[2017-03-07] MEDS: MAGNESIUM HYDROXIDE SUSP 30 ML CUP PO SCH (09:33)
[2017-03-07] MEDS: DOCUSATE SODIUM 100 MG CAP PO SCH ×2 (09:34→21:07)
[2017-03-07] MEDS: metFORMIN HCL 500 MG TAB PO SCH ×2 (09:34→18:57)
[2017-03-07] MEDS: LOSARTAN 25 MG TAB PO SCH (09:34)
[2017-03-07] MEDS: ASPIRIN 81 MG CHEW TAB PO SCH (09:34)
[2017-03-07] MEDS: METOPROLOL TARTRATE 25 MG TAB PO SCH ×2 (09:35→21:08)
[2017-03-07] MEDS: CLOPIDOGREL 75 MG TAB PO SCH (09:35)
[2017-03-07] MEDS: POLYETHYLENE GLYCOL 17 GM PKG PO SCH (10:08)
[2017-03-07] MEDS: STIOLTO RESPIMAT INH SCH (10:09)
[2017-03-07] MEDS: SODIUM CHLORIDE 0.9% FLUSH 10 ML FLUSH IV FLUSH SCH ×2 (10:09→21:00)
--- NOTE | 2017-03-07 11:43 | PD.ONC.PN ---
Subjective Subjective Remarks doing well and talkative. did have transient lightheadedness Objective Data Date Time Temp Pulse Resp B/P (MAP) Pulse Ox O2 Delivery O2 Flow Rate FiO2 03/07/17 09:41 98.0 82 16 121/60 95 03/07/17 08:06 97 Nasal Cannula 2.00 03/07/17 06:02 72 03/07/17 05:34 74 03/07/17 04:10 71 03/07/17 03:45 98.2 76 16 108/54 (72) 94 03/07/17 03:45 94 Nasal Cannula 2.00 03/07/17 03:45 71 03/07/17 02:08 71 03/07/17 01:10 72 03/07/17 00:09 73 03/06/17 23:35 73 03/06/17 23:15 94 Nasal Cannula 2.00 03/06/17 23:15 97.9 76 16 105/83 (90) 94 03/06/17 22:08 75 03/06/17 21:45 80 03/06/17 20:15 68 03/06/17 20:13 98 Nasal Cannula 2.00 03/06/17 19:39 69 03/06/17 19:15 94 Nasal Cannula 2.00 03/06/17 19:15 97.6 71 16 102/50 (67) 94 03/06/17 18:00 70 03/06/17 17:32 69 03/06/17 16:26 67 03/06/17 15:07 97.3 70 16 108/50 (69) 94 03/06/17 15:07 93 Nasal Cannula 2.00 03/06/17 15:00 66 03/06/17 14:30 95 Nasal Cannula 2.00 03/06/17 14:30 64 03/06/17 13:06 96 Nasal Cannula 2.00 03/06/17 13:06 97.4 77 16 147/67 (93) 96 Arterial Line 03/07/17 03/07/17 03/07/17 07:00 15:00 23:00 Intake Total 120 ml 10 ml Output Total 50 ml Balance 70 ml 10 ml Result Diagram: 03/07/17 0500 03/07/17 0500 Laboratory Results Laboratory Tests Test 03/07/17 05:00 White Blood Count 11.0 TH/MM3 Red Blood Count 3.16 MIL/MM3 Hemoglobin 7.2 GM/DL Hematocrit 23.0 % Mean Corpuscular Volume 72.8 FL Mean Corpuscular Hemoglobin 22.9 PG Mean Corpuscular Hemoglobin Concent 31.5 % Red Cell Distribution Width 23.2 % Platelet Count 223 TH/MM3 Mean Platelet Volume 7.2 FL Neutrophils (%) (Auto) 80.2 % Lymphocytes (%) (Auto) 10.4 % Monocytes (%) (Auto) 7.1 % Eosinophils (%) (Auto) 2.1 % Basophils (%) (Auto) 0.2 % Neutrophils # (Auto) 8.8 TH/MM3 Lymphocytes # (Auto) 1.1 TH/MM3 Monocytes # (Auto) 0.8 TH/MM3 Eosinophils # (Auto) 0.2 TH/MM3 Basophils # (Auto) 0.0 TH/MM3 CBC Comment DIFF FINAL Differential Comment Blood Urea Nitrogen 15 MG/DL Creatinine 1.00 MG/DL Random Glucose 88 MG/DL Calcium Level 8.3 MG/DL Magnesium Level 2.3 MG/DL Sodium Level 136 MEQ/L Potassium Level 4.5 MEQ/L Chloride Level 100 MEQ/L Carbon Dioxide Level 31.0 MEQ/L Anion Gap 5 MEQ/L Estimat Glomerular Filtration Rate 55 ML/MIN Administered Medications Medications (Trade) Dose Ordered Sig/Isabel Route PRN Reason Start Time Stop Time Status Last Admin Dose Admin Sodium Chloride (NS Flush) 2 ml BID IV FLUSH 03/05/17 21:00 03/07/17 10:09 Clevidipine 50 ml @ 2 mls/hr TITRATE PRN IV Maintain BP < 140/90 mmHg 03/05/17 12:00 03/06/17 01:00 Aspirin (Aspirin Chew) 81 mg DAILY PO 03/06/17 09:00 03/07/17 09:34 Clopidogrel Bisulfate (Plavix) 75 mg DAILY PO 03/06/17 09:00 03/07/17 09:35 Pantoprazole Sodium (Protonix) 40 mg DAILY@06 PO 03/06/17 06:00 03/07/17 05:11 Amiodarone HCl (Cordarone) 400 mg Q12HR PO 03/05/17 21:00 03/07/17 09:33 Acetaminophen/ Hydrocodone Bitart ([place] 5-325 Mg) 1 tab Q3H PRN PO PAIN SCALE 1 TO 5 03/05/17 12:00 03/07/17 09:36 Ondansetron HCl (Zofran Inj) 4 mg Q6H PRN IV PUSH NAUSEA OR VOMITING 03/05/17 12:00 03/07/17 02:23 Levothyroxine Sodium (Synthroid) 75 mcg DAILY@0600 PO 03/06/17 06:00 03/07/17 05:11 Fenofibrate (Tricor) 48 mg DAILY PO 03/06/17 09:00 03/06/17 08:38 Fluticasone Propionate (Flonase Melvin Spr) 1 spray BID EACH NARE 03/06/17 12:00 03/07/17 09:33 Metformin HCl (Glucophage) 500 mg BIDPC PO 03/06/17 11:00 03/07/17 09:34 Patient Own Medication PT OWN MED: STIO... DAILY INH 03/06/17 12:00 Future hold 03/07/17 10:09 Albuterol/ Ipratropium (Duoneb Neb) 1 ampule Q6HR WHILE AWAKE NEB NEB 03/06/17 14:00 03/08/17 13:59 03/07/17 08:05 Docusate Sodium (Colace) 100 mg BID PO 03/06/17 21:00 03/07/17 09:34 Multivitamins/ Minerals Therapeutic (Theragran M Tab) 1 tab DAILY PO 03/06/17 11:00 03/07/17 09:33 Magnesium Hydroxide (Milk Of Magnesia Liq) 30 ml DAILY PO 03/06/17 09:00 03/07/17 09:33 Polyethylene Glycol (Miralax) 17 gm DAILY PO 03/07/17 09:00 03/07/17 10:08 Sennosides (Senokot) 8.6 mg HS PO 03/06/17 21:00 03/06/17 21:08 Metoprolol Tartrate (Lopressor) 12.5 mg BID PO 03/06/17 10:30 03/07/17 09:35 Losartan Potassium (Cozaar) 25 mg DAILY PO 03/06/17 10:30 03/07/17 09:34 Sodium Chloride 250 ml @ 15 mls/hr ONCE ONCE IV 03/07/17 08:15 03/08/17 00:54 03/07/17 10:10 Objective Remarks GENERAL: Well-nourished, well-developed patient. SKIN: Warm and dry. HEAD: Normocephalic. EYES: No scleral icterus. No injection or drainage. NECK: Supple, trachea midline. No JVD or lymphadenopathy. LYMPHATIC: No adenopathy. CARDIOVASCULAR: Regular rate and rhythm without murmurs. has two chest tubes. RESPIRATORY: Breath sounds equal bilaterally. No accessory muscle use. GASTROINTESTINAL: Abdomen soft, non-tender, nondistended. EXTREMITIES: No cyanosis, or edema. MUSCULOSKELETAL: Adequate muscle tone. NEUROLOGICAL: No obvious focal deficit. Awake, alert, and oriented x3. PSYCHIATRIC: Appropriate mood and affect; insight and judgment normal. Assessment/Plan Assessment Ms. Paris is a 71-year-old female with multiple medical comorbid conditions including type 2 diabetes, hyperlipidemia, personal history of tobaccoism, emphysema, coronary artery disease, peripheral arterial disease and iron-deficiency anemia. She was admitted to [facility] for coronary artery bypass graft surgery for management of unstable angina. She required triple-vessel coronary artery bypass graft surgery. The hematology service has been asked to see her to further manage the iron deficiency anemia and to help determine the cause. Plan 1: IRON DEFICIENCY ANEMIA: will transfuse 2 units and this should be more then adequate. When she is taking orally without problems she can begin iron sulfate 325 mg daily. When she has fully recovered she will require a GI evaluation. will repeat cbc plat in am. Jordan Owusu MD Mar 07, 2017 11:43
[2017-03-07] MEDS: SENNOSIDES 8.6 MG TAB PO SCH (21:07)
[2017-03-08] VITALS (29 sets, daily range): BP systolic 126–170; BP diastolic 58–80; PULSE 70–86; RESP 16–20; TEMP 98.1–98.8; O2SAT 92–96
[2017-03-08 00:33] LABS: HEMATOCRIT 34.8 % (35.0-46.0); REVIEW FLAG FINAL
[2017-03-08] MEDS: PANTOPRAZOLE SOD 40 MG DELAYED RELEASE TAB PO SCH (05:46)
[2017-03-08] MEDS: LEVOTHYROXINE SODIUM 75 MCG TAB PO SCH (05:46)
[2017-03-08] MEDS: RESP: ALBUTEROL 2.5 MG/IPRATROPIUM 0.5 MG NEB (SCH) NEB (07:31)
[2017-03-08] MEDS: INSULIN ASPART SUPPLEMENTAL SCALE SQ SCH ×4 (08:00→21:00)
[2017-03-08] MEDS: FLUTICASONE PROPIONATE 50 MCG/ACT 16 GM NASAL SPRAY EACH NARE SCH ×2 (09:00→21:27)
[2017-03-08] MEDS: FENOFIBRATE 48 MG TAB PO SCH (09:00)
[2017-03-08] MEDS: MAGNESIUM HYDROXIDE SUSP 30 ML CUP PO SCH (09:00)
[2017-03-08] MEDS: DOCUSATE SODIUM 100 MG CAP PO SCH ×2 (09:00→21:00)
[2017-03-08] MEDS: POLYETHYLENE GLYCOL 17 GM PKG PO SCH (09:00)
--- NOTE | 2017-03-08 09:18 | PD.CAR.PN ---
CVT Progress Note CVT: POD #: 3 Subjective/Hospital Course: 71/ female c/o of chest discomfort and dyspnea off and on x 3 months , she underwent outpt cath 02/23/[address] Salinas , found to have multi vessel disease 70% Left Main EF 57% . It was noted at that time HGB 8.3/ iron studies were done which showed Iron def anemia , preop this am her HGB 6.8/ she required 2 units PRBC prior to starting surgery. Hematology has been consulted to assist . PMH: CAD, PAD ( Left fem-pop bypass 08/05/16, right 06/03) , carotid disease with prior Left CEA 06/03, DM, peripheral neuropathy, COPD, DDD, HLP, HTN surgery: 03/05 Off-pump Coronary Artery Bypass Grafting x 3 with Left Internal Mammary Artery ( MASON) to the Left Anterior Descending (LAD), reverse saphenous vein graft to the Obtuse Marginal 1 (OM1), reverse saphenous vein graft to the Posterior Descending Artery (PDA) of the Right Coronary Artery, Left Leg Endoscopic Vein [place] 03/06 doing well, up in chair, ambulated today leave chest tubes in , start low dose BB , resume cozaar weaned off cleviprex pulm toileting transfer to stepdown 03/07 Doing well Remains anemic. Will transfuse 2 units PRBC Greatly appreciate Hematology input Ambulate Maintain CT. Likely D/C in am 03/08/17 Progressing. No complaints. will d/c chest tubes today. Objective: Vital Signs Date Time Temp Pulse Resp B/P (MAP) Pulse Ox O2 Delivery O2 Flow Rate FiO2 03/08/17 07:45 98.5 70 20 140/64 (89) 95 03/08/17 07:45 73 03/08/17 07:45 95 Nasal Cannula 2.00 03/08/17 07:32 93 Nasal Cannula 2.00 03/08/17 06:06 74 03/08/17 05:23 85 03/08/17 04:20 84 03/08/17 03:04 98.2 78 16 126/58 (80) 92 03/08/17 03:04 76 03/08/17 03:04 92 Nasal Cannula 2.00 03/08/17 02:08 79 03/08/17 01:24 77 03/08/17 00:44 77 03/07/17 23:40 97.7 81 20 156/80 (105) 93 03/07/17 23:40 93 Nasal Cannula 2.00 03/07/17 23:05 81 03/07/17 22:00 80 03/07/17 21:00 80 03/07/17 20:23 94 Nasal Cannula 2.00 03/07/17 20:00 74 03/07/17 19:50 96 Nasal Cannula 2.00 03/07/17 19:50 97.5 78 18 148/62 (90) 96 03/07/17 19:50 81 03/07/17 18:00 80 03/07/17 17:06 98.7 76 16 155/67 94 03/07/17 17:00 74 03/07/17 16:00 76 03/07/17 15:45 97.5 77 16 122/60 (80) 97 03/07/17 15:45 96 Room Air 03/07/17 14:00 78 03/07/17 13:00 80 03/07/17 12:00 72 03/07/17 11:30 98.7 76 18 134/83 (100) 96 03/07/17 11:30 96 Room Air 03/07/17 11:00 72 03/07/17 10:00 80 03/07/17 09:41 98.0 82 16 121/60 95 Labs: Laboratory Tests Test 03/08/17 00:00 Hemoglobin 11.2 GM/DL (11.6-15.3) Hematocrit 34.8 % (35.0-46.0) Result Diagram: 03/08/17 0000 03/07/17 0500 Imaging: Last Impressions Chest X-Ray 03/06/17 0500 Signed Impressions: Service Date/Time: Monday, March 06, 2017 03:50 - CONCLUSION: 1. Status post CABG. 2. Support lines and tubes as above. 3. Left basal atelectasis. Dirk Gallardo MD Cardiovascular: RRR Telemetry: NSR Pulmonary: CTA GI/: NABS, NT Incision: dry and intact CT: 70ml/12 hrs Plan: D/C chest tubes Encourage ambulation Likely d/c in AM (1) Coronary artery disease (2) S/P CABG x 3 Plan: ASA, resume home med of crestor start BB OOB, ambulate leave chest tubes in (3) Diabetes mellitus Plan: diabetic diet, resume metformin (4) Hyperlipemia Plan: resume home crestor (5) Hypertension Plan: restart cozaar (6) COPD (chronic obstructive pulmonary disease) Plan: Kaushal keller Cary H. MD Mar 08, 2017 09:18
[2017-03-08] MEDS: LOSARTAN 25 MG TAB PO SCH (09:37)
[2017-03-08] MEDS: METOPROLOL TARTRATE 25 MG TAB PO SCH ×2 (09:37→21:27)
[2017-03-08] MEDS: CLOPIDOGREL 75 MG TAB PO SCH (09:38)
[2017-03-08] MEDS: ASPIRIN 81 MG CHEW TAB PO SCH (09:38)
[2017-03-08] MEDS: MULTIVITAMINS/MINERALS THERAPEUTIC TAB PO SCH (09:38)
[2017-03-08] MEDS: metFORMIN HCL 500 MG TAB PO SCH ×2 (09:38→18:04)
[2017-03-08] MEDS: SODIUM CHLORIDE 0.9% FLUSH 10 ML FLUSH IV FLUSH SCH ×2 (09:39→21:27)
[2017-03-08] MEDS: AMIODARONE 200 MG TAB PO SCH ×2 (09:39→21:27)
[2017-03-08] MEDS: STIOLTO RESPIMAT INH SCH (09:45)
[2017-03-08] MEDS: FUROSEMIDE 40 MG/4 ML VIAL IV PUSH SCH (18:04)
[2017-03-08] MEDS ORDERED: TEMAZEPAM 7.5 MG CAP PO PRN (19:45)
[2017-03-08] MEDS: SENNOSIDES 8.6 MG TAB PO SCH (21:00)
[2017-03-09] VITALS (18 sets, daily range): BP systolic 119–158; BP diastolic 56–70; PULSE 68–78; RESP 18–19; TEMP 97.9–98.4; O2SAT 93–97
[2017-03-09] MEDS: LEVOTHYROXINE SODIUM 75 MCG TAB PO SCH (05:26)
[2017-03-09] MEDS: PANTOPRAZOLE SOD 40 MG DELAYED RELEASE TAB PO SCH (05:26)
[2017-03-09] MEDS: INSULIN ASPART SUPPLEMENTAL SCALE SQ SCH ×2 (08:00→12:00)
[2017-03-09] MEDS: metFORMIN HCL 500 MG TAB PO SCH (08:27)
[2017-03-09] MEDS: MULTIVITAMINS/MINERALS THERAPEUTIC TAB PO SCH (08:28)
[2017-03-09] MEDS: ASPIRIN 81 MG CHEW TAB PO SCH (08:28)
[2017-03-09] MEDS: METOPROLOL TARTRATE 25 MG TAB PO SCH (08:28)
[2017-03-09] MEDS: CLOPIDOGREL 75 MG TAB PO SCH (08:28)
[2017-03-09] MEDS: AMIODARONE 200 MG TAB PO SCH (08:28)
[2017-03-09] MEDS: LOSARTAN 25 MG TAB PO SCH (08:29)
[2017-03-09] MEDS: FUROSEMIDE 40 MG/4 ML VIAL IV PUSH SCH (08:29)
[2017-03-09] MEDS: SODIUM CHLORIDE 0.9% FLUSH 10 ML FLUSH IV FLUSH SCH (08:30)
[2017-03-09] MEDS: FENOFIBRATE 48 MG TAB PO SCH (08:33)
[2017-03-09] MEDS: STIOLTO RESPIMAT INH SCH (08:33)
[2017-03-09] MEDS: CRESTOR 10 MG PO SCH (08:33)
[2017-03-09] MEDS: FLUTICASONE PROPIONATE 50 MCG/ACT 16 GM NASAL SPRAY EACH NARE SCH (08:34)
[2017-03-09] MEDS: POLYETHYLENE GLYCOL 17 GM PKG PO SCH (08:34)
[2017-03-09] MEDS: DOCUSATE SODIUM 100 MG CAP PO SCH (08:34)
[2017-03-09] MEDS: MAGNESIUM HYDROXIDE SUSP 30 ML CUP PO SCH (08:34)
[2017-03-09] MEDS ORDERED: LOSARTAN 25 MG TAB PO ONE (10:00)
[2017-03-09 11:04] LABS: BICARBONATE 27.5 MEQ/L (21.0-32.0); MAGNESIUM 1.7 MG/DL (1.5-2.5); POTASSIUM 3.7 MEQ/L (3.5-5.1)
[2017-03-09] MEDS ORDERED: OXYGENDME NAS.CANULA (12:59)
[2017-03-09] MEDS ORDERED: DOCU1CAP39 PO (13:09)
[2017-03-09] MEDS ORDERED: METO25TA3 PO (13:09)
[2017-03-09] MEDS ORDERED: HYDR-3516 PO (13:09)
[2017-03-09] MEDS ORDERED: POTA-163 PO (13:09)
[2017-03-09] MEDS ORDERED: AMIO200T PO (13:09)
[2017-03-09] MEDS ORDERED: FURO1TAB60 PO (13:09)
--- NOTE | 2017-03-09 16:30 | HHI.DS ---
Discharge Summary Admission Date Mar 05, 2017 at 05:32 Discharge Date: Mar 09, 2017 Admitting Diagnosis CAD, chest pain (1) COPD (chronic obstructive pulmonary disease) Diagnosis: Principal ICD Codes: J44.9 - Chronic obstructive pulmonary disease, unspecified Status: Chronic (2) Coronary artery disease Diagnosis: Principal ICD Codes: I25.10 - Atherosclerotic heart disease of [place] coronary artery without angina pectoris Status: Chronic (3) Diabetes mellitus Diagnosis: Principal ICD Codes: E11.9 - Type 2 diabetes mellitus without complications Status: Chronic (4) Hyperlipemia Diagnosis: Principal ICD Codes: E78.5 - Hyperlipidemia, unspecified Status: Chronic (5) Hypertension Diagnosis: Principal ICD Codes: I10 - Essential (primary) hypertension Status: Chronic (6) S/P CABG x 3 Diagnosis: Secondary ICD Codes: Z95.1 - Presence of aortocoronary bypass graft Status: Acute (7) Postoperative hypoxemia ICD Codes: R09.02 - Hypoxemia; Z98.890 - Other specified postprocedural states Procedures 1. Off-pump Coronary Artery Bypass Grafting x 3 with Left Internal Mammary Artery (MASON) to the Left Anterior Descending (LAD), reverse saphenous vein graft to the Obtuse Marginal 1 (OM1), reverse saphenous vein graft to the Posterior Descending Artery (PDA) of the Right Coronary Artery 2. Left Leg Endoscopic Vein [place] 3. Intraoperative Vein Mapping 4. Multi-Level Intercostal Nerve Block. 03/05 Brief History 71/ female c/o of chest discomfort and dyspnea off and on x 3 months , she underwent outpt cath 02/23/[address] Salinas , found to have multi vessel disease 70% Left Main EF 57% . It was noted at that time HGB 8.3/ iron studies were done which showed Iron def anemia , preop this am her HGB 6.8/ she required 2 units PRBC prior to starting surgery. Hematology has been consulted to assist . PMH: CAD, PAD ( Left fem-pop bypass 08/05/16, right 06/03) , carotid disease with prior Left CEA 06/03, DM, peripheral neuropathy, COPD, DDD, HLP, HTN surgery: 03/05 Off-pump Coronary Artery Bypass Grafting x 3 with Left Internal Mammary Artery ( MASON) to the Left Anterior Descending (LAD), reverse saphenous vein graft to the Obtuse Marginal 1 (OM1), reverse saphenous vein graft to the Posterior Descending Artery (PDA) of the Right Coronary Artery, Left Leg Endoscopic Vein [place] CBC/BMP: 03/08/17 0000 03/09/17 1015 Significant Findings Laboratory Tests Test 03/07/17 05:00 03/08/17 00:00 03/09/17 10:15 Red Blood Count 3.16 MIL/MM3 (4.00-5.30) Hemoglobin 7.2 GM/DL (11.6-15.3) 11.2 GM/DL (11.6-15.3) Hematocrit 23.0 % (35.0-46.0) 34.8 % (35.0-46.0) Mean Corpuscular Volume 72.8 FL (80.0-100.0) Mean Corpuscular Hemoglobin 22.9 PG (27.0-34.0) Mean Corpuscular Hemoglobin Concent 31.5 % (32.0-36.0) Red Cell Distribution Width 23.2 % (11.6-17.2) Neutrophils (%) (Auto) 80.2 % (16.0-70.0) Neutrophils # (Auto) 8.8 TH/MM3 (1.8-7.7) Calcium Level 8.3 MG/DL (8.5-10.1) Estimat Glomerular Filtration Rate 55 ML/MIN (>89) 81 ML/MIN (>89) Random Glucose 211 MG/DL (74-106) Phosphorus Level 2.4 MG/DL (2.5-4.9) Sodium Level 135 MEQ/L (136-145) Chloride Level 97 MEQ/L (98-107) Imaging Last Impressions Chest X-Ray 03/06/17 0500 Signed Impressions: Service Date/Time: Monday, March 06, 2017 03:50 - CONCLUSION: 1. Status post CABG. 2. Support lines and tubes as above. 3. Left basal atelectasis. Dirk Gallardo MD PE at Discharge GENERAL: SKIN: Warm and dry. prevena dressing to chest , incision intact to leg HEAD: Normocephalic. EYES: No scleral icterus. No injection or drainage. NECK: Supple, trachea midline. No JVD or lymphadenopathy. CARDIOVASCULAR: Regular rate and rhythm without murmurs, gallops, or rubs. RESPIRATORY: Breath sounds equal bilaterally. No accessory muscle use. GASTROINTESTINAL: Abdomen soft, non-tender, nondistended. MUSCULOSKELETAL: No cyanosis, or edema. BACK: Nontender without obvious deformity. No CVA tenderness. Hospital Course 03/06 doing well, up in chair, ambulated today leave chest tubes in , start low dose BB , resume cozaar weaned off cleviprex pulm toileting transfer to stepdown 03/07 Doing well Remains anemic. Will transfuse 2 units PRBC Greatly appreciate Hematology input Ambulate Maintain CT. Likely D/C in am 03/08/17 Progressing. No complaints. will d/c chest tubes today. 03/09 appreciate hematology input pt will need outpt f/u with GI for Upper and lower endoscopy / she has appointment in Mar 19 walk test, + she will need home , continue lasix x 7 days will dc home today Pt Condition on Discharge: Good Discharge Disposition: Disch w/ Home Health Serv Discharge Instructions DIET: Follow Instructions for: Heart Healthy Diet Activities you can perform: Full Weight Bearing, Shower Only-No Bath Activities to avoid: Strenuous Activity, Driving Additional Activity Instructio: no lifting > 8 lbs or gallons of milk Follow up Referrals: Cardiology with Kb Salinas DO PCP Follow-up with Do Isma Gray MD Surgical with Stephen Perez MD New Medications: Furosemide (Lasix) 40 Mg Tab 40 MG PO DAILY for edema , #7 TAB 1 Refill Oxygen (O2) (Oxygen (O2)) Device LITER SARAH.CANULA CONTINUOUS for Prevent Hypoxemia, #2 Oxygen Concentrator Portable Gaseous 2 L/min via Nasal Canula Continuous For 99 months Potassium Chloride ER (Potassium Chloride ER) 20 Meq Tab 20 MEQ PO DAILY for Electrolyte Replacement, #7 TAB 1 Refill Amiodarone (Amiodarone) 200 Mg Tab 200 MG PO Q12HR for heart rhythm, #28 TAB 0 Refills for 2 weeks only Docusate Sodium (Dok) 100 Mg Cap 100 MG PO BID for Constipation, #60 CAP 0 Refills Hydrocodone-Acetaminophen (Hydrocodone-Acetaminophen) 5-325 mg Tab 1 TAB PO Q4H PRN for PAIN SCALE 1 TO 5, #40 TAB Metoprolol Tartrate (Metoprolol Tartrate) 25 Mg Tab 25 MG PO BID for Blood Pressure Management, #60 TAB 2 Refills Continued Medications: Aspirin (Aspirin) 81 Mg Chew 81 MG CHEW DAILY, TAB 0 Refills Clopidogrel (Clopidogrel) 75 Mg Tab 75 MG PO DAILY for Blood Clot Prevention, #30 TAB 0 Refills Evening [place] Oil (Evening [place] Oil) 1,000 Mg Cap 1300 CAP PO DAILY Fenofibrate (Fenofibrate) 54 Mg Tab 54 MG PO DAILY, #30 TAB 0 Refills Fluticasone Nasal [place] (Fluticasone Nasal [place]) 50 Mcg/Act Naspr 50 MCG EACH NARE BID for Allergy Management, #1 BOTTLE 0 Refills 50 mcg/spray Levothyroxine (Levothyroxine) 75 Mcg Tab 75 MCG PO DAILY for Thyroid, #30 TAB 0 Refills Losartan (Losartan) 50 Mg Tab 50 MG PO DAILY for Blood Pressure Management, #30 TAB 0 Refills Magnesium Oxide (Magnesium Oxide) 400 Mg Cap 1 CAP PO DAILY Metformin (Metformin) 500 Mg Tab 500 MG PO BIDPC for Blood Sugar Management, #60 TAB 0 Refills With meals Multiple Vitamin (Multi-Vitamin Daily) 1 Tab Tab 1 TAB PO DAILY for Nutritional Supplement, TAB 0 Refills Rosuvastatin (Crestor) 10 Mg Tab 10 MG PO DAILY for Cholesterol Management, #30 TAB 0 Refills Tiotropium-Olodaterol Inh (Stiolto Respimat Inh) 2.5-2.5 Mcg/Act Aero 2 PUFF INH DAILY for COPD, #1 INHALER 0 Refills Discontinued Medications: Atenolol (Atenolol) 50 Mg Tab 50 MG PO DAILY for Blood Pressure Management, #30 TAB 0 Refills Celecoxib (Celecoxib) 200 Mg Cap 200 MG PO DAILY for Pain Management, CAP 0 Refills Maryann Gunderson Mar 09, 2017 16:30
[2017-03-09] MEDS ORDERED: FERR325T8 PO (16:37)
[2017-03-10] MEDS ORDERED: LOSARTAN 50 MG TAB PO SCH (09:00)
== END 2017-03-09 17:00 | disposition home health service (06) | DRG 236 ==
LOC: HSDI 05:32 → HCVI 12:18 → HCPC 03-06 13:16
PROVIDERS: ADMIT Thoracic Surgery (Cardiothoracic Vascular Surgery); ATTEND Thoracic Surgery (Cardiothoracic Vascular Surgery)
PROC: 06BQ4ZZ Excision of Left Saphenous Vein, Percutaneous Endoscopic Approach (ICD-10-PCS; 2017-03-05)
PROC: 3E0T3BZ Introduction of Anesthetic Agent into Peripheral Nerves and Plexi, Percutaneous Approach (ICD-10-PCS; 2017-03-05)
PROC: 4A0234Z Measurement of Cardiac Electrical Activity, Percutaneous Approach (ICD-10-PCS; 2017-03-05)
PROC: 4A023FZ Measurement of Cardiac Rhythm, Percutaneous Approach (ICD-10-PCS; 2017-03-05)
PROC: 02100Z9 Bypass Coronary Artery, One Artery from Left Internal Mammary, Open Approach (ICD-10-PCS; principal; 2017-03-05 07:01)
PROC: 021109W Bypass Coronary Artery, Two Arteries from Aorta with Autologous Venous Tissue, Open Approach (ICD-10-PCS; 2017-03-05 07:01)
DX: I25.110 Atherosclerotic heart disease of native coronary artery with unstable angina pectoris (principal); J44.9 Chronic obstructive pulmonary disease, unspecified; I24.9 Acute ischemic heart disease, unspecified; E11.9 Type 2 diabetes mellitus without complications; D50.9 Iron deficiency anemia, unspecified; I10 Essential (primary) hypertension; J95.89 Other postprocedural complications and disorders of respiratory system, not elsewhere classified; I73.9 Peripheral vascular disease, unspecified; E03.9 Hypothyroidism, unspecified; E78.5 Hyperlipidemia, unspecified; R09.02 Hypoxemia; Z87.891 Personal history of nicotine dependence; Z95.5 Presence of coronary angioplasty implant and graft; Z95.828 Presence of other vascular implants and grafts
CPT/HCPCS: 36430; 71010; 76937; 80048; 82948; 83735; 84100; 85014; 85018; 85025; 85027; 86850; 86900; 86901; 86920; 93005; 94002; 94150; 94620; 94640; 94664; 94667; 94668; C1768; C9248; C9290; J0131; J0690; J1100; J1265; J1644; J1815; J1940; J2250; J2270; J2370; J2405; J2720; J3010; J3370; J3411; J3475; J3480; J7040; J7050; J7120; P9016

== ENCOUNTER 2017-07-27 10:21 | Inpatient (IN) | payer OTHER, MEDICARE ==
[~2017-07-27] VITALS: Ht 162.6 cm; Wt 70.0 kg
[2017-07-27] VITALS (11 sets, daily range): BP systolic 126–191; BP diastolic 58–77; PULSE 74–127; RESP 16–20; TEMP 96.4–99; O2SAT 93–100
[~2017-07-27 10:21] MED LIST changes: +AMIO200T PO; +ASPI-516 CHEW; -ASPI81CH CHEW; -ATEN50TA PO; -CELE1CAP8 PO; +DOCU1CAP39 PO; +FERR325T18 PO; +FURO1TAB60 PO; +HYDR-3516 PO; +METO25TA3 PO; +OXYGENDME NAS.CANULA; +POTA-163 PO; +ROSU10 PO
--- NOTE | 2017-07-27 11:06 | RADRPT ---
EXAM DATE/TIME: 07/27/2017 10:54 [place] COMPARISON: CHEST SINGLE AP, March 06, 2017, 3:50. CHEST PA & LAT, February 23, 2017, 17:38. INDICATIONS : Shortness of breath. MEDICAL HISTORY : Congestive heart failure. SURGICAL HISTORY : CABG, Heart catherization. ENCOUNTER: Initial ACUITY: 1 week PAIN SCORE: 0/10 LOCATION: Bilateral chest FINDINGS: Subtle blunting of the posterior costophrenic angles. Postsurgical features of prior median sternotom y and cardiac surgery. The cardiomediastinal contours are unremarkable. Osseous structures are intac t. CONCLUSION: 1. Subtle bilateral posterior pleural thickening versus very trace pleural effusions. Antonio Maurer MD on July 27, 2017 at 11:02 Board Certified Radiologist. This report was verified electronically.
[2017-07-27 12:03] LABS: AUTOMATED NEUTROPHIL # 4.2 TH/MM3 (1.8-7.7); BASOPHIL # 0.1 TH/MM3 (0-0.2); EOSINOPHIL # 0.1 TH/MM3 (0-0.4); EOSINOPHIL % 1.5 % (0.0-4.0); HEMATOCRIT 22.4 % (35.0-46.0); HEMOGLOBIN 7.5 GM/DL (11.6-15.3); LYMPH % 22.6 % (9.0-44.0); LYMPHOCYTE # 1.4 TH/MM3 (1.0-4.8); MEAN CELL VOLUME 97.9 FL (80.0-100.0); MEAN CORPUSCULAR HEMOGLOBIN 32.8 PG (27.0-34.0); MEAN CORPUSCULAR HGB CONC 33.5 % (32.0-36.0); MEAN PLATELET VOLUME 6.8 FL (7.0-11.0); MONO % 8.8 % (0.0-8.0); MONOCYTE # 0.6 TH/MM3 (0-0.9); NEUT % 66.1 % (16.0-70.0); PLATELET COUNT 326 TH/MM3 (150-450); RED BLOOD COUNT 2.29 MIL/MM3 (4.00-5.30); RED CELL DISTRIBUTION WIDTH 16.7 % (11.6-17.2); WHITE BLOOD COUNT 6.3 TH/MM3 (4.0-11.0)
[2017-07-27 12:22] LABS: BICARBONATE 22.3 MEQ/L (21.0-32.0); BLOOD UREA NITROGEN 13 MG/DL (7-18); CHLORIDE 102 MEQ/L (98-107); CREATININE 0.95 MG/DL (0.50-1.00); GLOMERULAR FILTRATION RATE 58 ML/MIN (>89); GLUCOSE,RANDOM 213 MG/DL (74-106); SODIUM (NA) 137 MEQ/L (136-145)
[2017-07-27 12:26] LABS: TROPONIN I LESS THAN 0.02 NG/ML (0.02-0.05)
--- NOTE | 2017-07-27 13:01 | PD ---
HPI Chief Complaint: Dizziness Time Seen by Provider: 11:55 Travel History International Travel<30 days: No Contact w/Intl Traveler<30days: No Traveled to known affect area: No History of Present Illness HPI 71-year-old female with PMH of HTN, COPD, HLD, DM, CAD status post CABG in February on presents to the ED for evaluation of 3 day history of dizziness, shortness of breath. Patient endorses palpitations which began today. She denies headache, vision changes, chest pain, abdominal pain, nausea , vomiting. She endorses chronic constipation. She endorses chronic, nonproductive cough. She denies melena, hematochezia, BRBPR. She states that she noticed that her blood pressure was very low last week, called her primary care and was told to stop losartan and metoprolol. Symptoms have continued despite these medication changes. She endorses history of anemia just before her CABG in February. She states that she had a panendoscopy at that time. She states that she has a plan to "swallowed the pill" with the endoscopist later this month. PFSH Past Medical History Anxiety: No Depression: No Cancer: No Cardiovascular Problems: No High Cholesterol: Yes Diabetes: Yes (oral med) Endocrine: Yes Gastrointestinal Disorders: No Genitourinary: No Hepatitis: No Hiatal Hernia: No Hypertension: Yes (chol) Immune Disorder: No Musculoskeletal: Yes (arthritis) Neurologic: No Psychiatric: No Reproductive: No Respiratory: Yes (MINIMAL EMPYHSEMA/copd) Thyroid Disease: Yes Past Surgical History Abdominal Surgery: Yes (brant) AICD: No Body Medical Devices: VASCULAR STENTS, bottom permanent implants for dentures Cardiac Surgery: No Ear Surgery: Yes (RIGHT EAR SURGERY) Endocrine Surgery: No Eye Surgery: No Genitourinary Surgery: No Gynecologic Surgery: No Joint Replacement: No Oral Surgery: Yes (for dentures) Pacemaker: No Thoracic Surgery: No Social History Tobacco Use: No Substance Use: No Allergies-Medications (Allergen,Severity, Reaction): Coded Allergies: erythromycin base (Verified Allergy, Severe, throat swelling, 07/27/17) able to tolerate crestor Kzwyckj-Nct-Gal Reductase Inhibitor (Verified Allergy, Unknown, 07/27/17) pt takes crestor Reported Meds & Prescriptions Reported Meds & Active Scripts Active Ferrous Sulfate 325 Mg (65 Mg Iron) Tablet 325 Mg PO BIDPC Potassium Chloride ER (Potassium Chloride) 20 Meq Tab 20 Meq PO DAILY Lasix (Furosemide) 40 Mg Tab 40 Mg PO DAILY Dok (Docusate Sodium) 100 Mg Cap 100 Mg PO BID Hydrocodone-Acetaminophen 5-325 mg Tab 1 Tab PO Q4H PRN Metoprolol Tartrate 25 Mg Tab 25 Mg PO BID Amiodarone (Amiodarone HCl) 200 Mg Tab 200 Mg PO Q12HR for 2 weeks only Oxygen (O2) Device Liter SARAH.CANULA CONTINUOUS Oxygen Concentrator Portable Gaseous 2 L/min via Nasal Canula Continuous For 99 months Reported Crestor (Rosuvastatin Calcium) 10 Mg Tab 10 Mg PO DAILY Stiolto Respimat Inh (Tiotropium-Olodaterol Inh) 2.5-2.5 Mcg/Act Aero 2 Puff INH DAILY Aspirin 81 Mg Chew 81 Mg CHEW DAILY Fluticasone Nasal [place] 50 Mcg/Act Naspr 50 Mcg EACH NARE BID 50 mcg/spray Clopidogrel (Clopidogrel Bisulfate) 75 Mg Tab 75 Mg PO DAILY Multi-Vitamin Daily (Multiple Vitamin) 1 Tab Tab 1 Tab PO DAILY Metformin (Metformin HCl) 500 Mg Tab 500 Mg PO BIDPC With meals Magnesium Oxide 400 Mg Cap 1 Cap PO DAILY Evening [place] Oil 1,000 Mg Cap 1,300 Cap PO DAILY Losartan (Losartan Potassium) 50 Mg Tab 50 Mg PO DAILY Fenofibrate 54 Mg Tab 54 Mg PO DAILY Levothyroxine (Levothyroxine Sodium) 75 Mcg Tab 75 Mcg PO DAILY Review of Systems Except as stated in HPI: all other systems reviewed are Neg Physical Exam Narrative GENERAL: Well-nourished, well-developed pale white female in no acute distress. SKIN: Focused skin assessment warm/dry. HEAD: Normocephalic. EYES: No scleral icterus. No injection or drainage. NECK: Supple, trachea midline. No JVD or lymphadenopathy. CARDIOVASCULAR: Regular rate and rhythm without murmurs, gallops, or rubs. RESPIRATORY: Breath sounds clear and equal bilaterally. No accessory muscle use. GASTROINTESTINAL: Abdomen soft, non-tender, nondistended. Active bowel sounds. RECTAL: Stool is brown. Guaiac positive. MUSCULOSKELETAL: No cyanosis, or edema. Moves extremities spontaneously. BACK: Nontender without obvious deformity. No CVA tenderness. Data Data Last Documented VS Vital Signs Date Time Temp Pulse Resp B/P (MAP) Pulse Ox O2 Delivery O2 Flow Rate FiO2 07/27/17 12:15 100 16 07/27/17 10:36 98.6 191/74 (113) 99 Orders Orders Electrocardiogram (07/27/17 10:36) Complete Blood Count With Diff (07/27/17 10:36) Basic Metabolic Panel (Bmp) (07/27/17 10:36) Ckmb (Isoenzyme) Profile (07/27/17 10:36) Troponin I (07/27/17 10:36) Iv Access Insert/Monitor (07/27/17 10:36) Ecg Monitoring (07/27/17 10:36) Oxygen Administration (07/27/17 10:36) Oximetry (07/27/17 10:36) Chest, Pa & Lat (07/27/17 10:36) Urinalysis - C+S If Indicated (07/27/17 12:34) B-Type Natriuretic Peptide (07/27/17 12:34) Ct Brain W/O Iv Contrast(Rout) (07/27/17 12:34) Type And Screen (07/27/17 12:34) Red Blood Cells (Rbc) (07/27/17 13:48) Blood Product Administration (07/27/17 13:48) Sodium Chlor 0.9% 250 Ml Inj (Ns 250 Ml (07/27/17 14:00) Consult Gastroenterology (07/27/17 ) Famotidine Inj (Pepcid Inj) (07/27/17 14:30) Labs Laboratory Tests Test 07/27/17 11:10 07/27/17 13:00 07/27/17 13:19 White Blood Count 6.3 TH/MM3 Red Blood Count 2.29 MIL/MM3 Hemoglobin 7.5 GM/DL Hematocrit 22.4 % Mean Corpuscular Volume 97.9 FL Mean Corpuscular Hemoglobin 32.8 PG Mean Corpuscular Hemoglobin Concent 33.5 % Red Cell Distribution Width 16.7 % Platelet Count 326 TH/MM3 Mean Platelet Volume 6.8 FL Neutrophils (%) (Auto) 66.1 % Lymphocytes (%) (Auto) 22.6 % Monocytes (%) (Auto) 8.8 % Eosinophils (%) (Auto) 1.5 % Basophils (%) (Auto) 1.0 % Neutrophils # (Auto) 4.2 TH/MM3 Lymphocytes # (Auto) 1.4 TH/MM3 Monocytes # (Auto) 0.6 TH/MM3 Eosinophils # (Auto) 0.1 TH/MM3 Basophils # (Auto) 0.1 TH/MM3 CBC Comment DIFF FINAL Differential Comment Blood Urea Nitrogen 13 MG/DL Creatinine 0.95 MG/DL Random Glucose 213 MG/DL Calcium Level 9.0 MG/DL Sodium Level 137 MEQ/L Potassium Level 3.9 MEQ/L Chloride Level 102 MEQ/L Carbon Dioxide Level 22.3 MEQ/L Anion Gap 13 MEQ/L Estimat Glomerular Filtration Rate 58 ML/MIN Total Creatine Kinase 43 U/L Troponin I LESS THAN 0.02 NG/ML Urine Color YELLOW Urine Turbidity CLEAR Urine pH 5.5 Urine Specific [place] 1.026 Urine Protein TRACE mg/dL Urine Glucose (UA) 70 mg/dL Urine Ketones NEG mg/dL Urine Occult Blood NEG Urine Nitrite NEG Urine Bilirubin NEG Urine Urobilinogen LESS THAN 2.0 MG/DL Urine Leukocyte Esterase NEG Urine RBC LESS THAN 1 /hpf Urine WBC 1 /hpf Urine Squamous Epithelial Cells 2 /hpf Urine Hyaline Casts 9 /lpf Urine Mucus FEW /lpf Microscopic Urinalysis Comment CULT NOT INDICATED MDM Medical Decision Making Medical Screen Exam Complete: Yes Emergency Medical Condition: Yes Differential Diagnosis Hypertensive urgency versus anemia versus COPD exacerbation versus UTI versus ACS versus ICH versus other Narrative Course 71-year-old female with PMH of HTN, COPD, HLD, DM, CAD s/p CABG in February on Plavix presents to the ED for evaluation of 3 day history of dizziness, shortness of breath, palpitations. She states that her blood pressure was very low last week, PCP told her to stop losartan and metoprolol. Symptoms have continued despite these medication changes. She endorses history of anemia just before her CABG in February. She states that she had a panendoscopy at that time. She states that she has a plan to "swallowed the pill" with Dr. Whitney later this month. Temp 98.6, pulse 127, BP 191/74 on presentation. On exam this patient is pale, nontoxic appearing. Chest CTA B. Abdomen soft and nontender. No focal neuro deficits noted. Guaiac positive on rectal exam. IV was established. Patient was administered half liter normal saline and IV Protonix. EKG rate 108, sinus tachycardia. OK interval 187, QRS 86, QTC 366 ms. Normal axis. No acute ST changes. Reviewed by Dr. Salinas. CXR: Subtle bilateral posterior pleural thickening versus very trace pleural effusions per radiology read. Cardiac enzymes: negative x 1 CBC: WBC 6.3, hemoglobin 7.5. CMP: BUN 13, creatinine 0.95. Glucose 213. UA: No culture indicated. On recheck pulse 100, BP 178/76. I discussed the results of the workup with the patient. She is agreeable to blood transfusion and admission. 2 units PRBCs ordered pending type and screen. Consult place with gastroenterology. I spoke with who agrees to accept the patient to medicine service. Please see medicine notes for disposition. [facility] Point of Care Internal Pos. & Neg. Controls: Passed Fecal Specimen Occult Blood: Positive Deepali Jeff Jul 27, 2017 13:01
--- NOTE | 2017-07-27 13:38 | RADRPT ---
EXAM DATE/TIME: 07/27/2017 13:30 [facility] COMPARISON: No previous studies available for comparison. INDICATIONS : Dizziness and lightheadedness since yesterday. RADIATION DOSE: 34.48 CTDIvol (mGy) MEDICAL HISTORY : Hypertension. Diabetes mellitus type 2. SURGICAL HISTORY : Right ear surgery. ENCOUNTER: Initial ACUITY: 1 day PAIN SCALE: 0/10 LOCATION: cranial TECHNIQUE: Multiple contiguous axial images were obtained of the head. Using automated exposure control and adj ustment of the mA and/or kV according to patient size, radiation dose was kept as low as reasonably a chievable to obtain optimal diagnostic quality images. DICOM format image data is available electro nically for review and comparison. FINDINGS: CEREBRUM: The ventricles are normal for age. No evidence of midline shift, mass lesion, hemorrhage or acute in farction. No extra-axial fluid collections are seen. POSTERIOR FOSSA: The cerebellum and brainstem are intact. The 4th ventricle is midline. The cerebellopontine angle i s unremarkable. EXTRACRANIAL: The visualized portion of the orbits is intact. SKULL: The calvaria is intact. No evidence of skull fracture. CONCLUSION: Normal examination. John Villaseñor MD on July 27, 2017 at 13:36 Board Certified Radiologist. This report was verified electronically.
[2017-07-27 13:51] LABS: BILIRUBIN, URINE NEG (NEG); BLOOD, URINE NEG (NEG); GLUCOSE,URINE 70 mg/dL (NEG); HYALINE CAST, URINE 9 /lpf (RARE); KETONE, URINE NEG (NEG); MUCUS URINE FEW /lpf (OCC); NITRITE,URINE NEG (NEG); PH, URINE 5.5 (5.0-8.5); SQUAMOUS EPITHELIAL CELL URINE 2 /hpf (0-5); URINE COLOR YELLOW (YELLW/STRAW); URINE LEUKOCYTE ESTERASE NEG (NEG)
[2017-07-27] MEDS ORDERED: SODIUM CHLOR 0.9% 250 ML INJ 250 ML IV ONE (14:00)
[2017-07-27] MEDS ORDERED: FAMOTIDINE 20 MG/2 ML VIAL IV PUSH ONE (14:30)
[2017-07-27] MEDS ORDERED: ONDANSETRON HCL 4 MG/2 ML VIAL IVP PRN (15:15)
[2017-07-27] MEDS ORDERED: ACETAMINOPHEN 325 MG TAB PO PRN ×2 (15:15)
[2017-07-27] MEDS ORDERED: SODIUM CHLORIDE 0.9% FLUSH 10 ML FLUSH IV FLUSH PRN (15:15)
[2017-07-27] MEDS ORDERED: NALOXONE HCL 0.4 MG/ML AMP IV PUSH PRN (15:15)
--- NOTE | 2017-07-27 15:19 | HHI.HP ---
[facility] Isma Gray Do, MD Admission Diagnosis symptomatic anemia, GI bleed Diagnoses: Chief Complaint: Lightheadedness Travel History International Travel<30 Days: No Contact w/Intl Traveler <30 Da: No Traveled to Known Affected Are: No History of Present Illness The patient is a 71-year-old female with a past medical history of CAD status post recent CABG and peripheral vascular disease who is presenting to the hospital with lightheadedness. The patient believes her symptoms started on Thursday or Thursday. Besides the lightheadedness she noticed shortness of breath with exertion. She says after walking she would have to catch her breath. She checks her blood pressure at home and the systolic blood pressure went as low as 103. She called her primary care doctor who recommended she hold her blood pressure medications, and she has been off of them for 2 days. She has not been eating well. She had an episode of palpitations this morning. She denies any chest pain. She says that she is currently undergoing a workup for her anemia and has a video capsule study scheduled for next week. She said she stopped taking Plavix this morning. She endorses constipation. She attributes that to her iron pills. Review of Systems Except as stated in HPI: all other systems reviewed are Neg Past Family Social History Past Medical History Anemia CAD PVD Diabetes mellitus Hypothyroidism COPD Hypertension Past Surgical History CABG 3 Bilateral stents placed in the lower extremities Bilateral femoropopliteal procedures Cholecystectomy Left CEA Allergies: Coded Allergies: erythromycin base (Verified Allergy, Severe, throat swelling, 07/27/17) able to tolerate crestor Dptqowr-Pyu-Nbu Reductase Inhibitor (Verified Allergy, Unknown, 07/27/17) pt takes crestor Active Ordered Medications Current Medications Medications (Trade) Dose Ordered Sig/Isabel Route Start Time Stop Time Status Last Admin Sodium Chloride 250 ml @ 15 mls/hr ONCE ONCE IV 07/27/17 14:00 07/28/17 06:39 (Colace) 100 mg BID PO 07/27/17 21:00 (Ferrous Sulfate) 325 mg BIDPC PO 07/27/17 18:00 (Flonase Melvin Spr) 1 spray BID EACH NARE 07/27/17 21:00 (Synthroid) 75 mcg DAILY@0600 PO 07/28/17 06:00 (Cozaar) 50 mg DAILY PO 07/27/17 15:00 (Lopressor) 25 mg BID PO 07/27/17 21:00 (Tricor) 48 mg DAILY PO 07/28/17 09:00 Patient Own Medication PT OWN MED: STIO... DAILY INH 07/28/17 09:00 Future Hold (Protonix Inj) 40 mg Q12H IV PUSH 07/27/17 14:45 UNV (NovoLOG SUPPLEMENTAL SCALE) 1 ACHS SLIDING SCALE SQ 07/27/17 17:00 UNV (NS Flush) 2 ml UNSCH PRN IV FLUSH 07/27/17 15:15 UNV (NS Flush) 2 ml BID IV FLUSH 07/27/17 21:00 UNV (Tylenol) 650 mg Q4H PRN PO 07/27/17 15:15 UNV (Zofran Inj) 4 mg Q6H PRN IVP 07/27/17 15:15 UNV (Tylenol) 650 mg Q6H PRN PO 07/27/17 15:15 UNV (Roxicodone) 5 mg Q4H PRN PO 07/27/17 15:15 UNV (Narcan Inj) 0.4 mg UNSCH PRN IV PUSH 07/27/17 15:15 UNV Family History CAD PVD Diabetes Esophageal cancer Social History The patient has a heavy smoking history but quit 20 years ago. She has occasional red wine. Physical Exam Vital Signs Vital Signs Date Time Temp Pulse Resp B/P (MAP) Pulse Ox O2 Delivery O2 Flow Rate FiO2 07/27/17 12:15 100 16 07/27/17 10:36 98.6 127 17 191/74 (113) 99 Physical Exam GENERAL: This is a well-nourished, well-developed patient, in no apparent distress. SKIN: No rashes, ecchymoses or lesions. Cool and dry. HEAD: Atraumatic. Normocephalic. No temporal or scalp tenderness. EYES: Pupils equal round and reactive. Extraocular motions intact. No scleral icterus. No injection or drainage. ENT: Nose without bleeding, purulent drainage or septal hematoma. Throat without erythema, tonsillar hypertrophy or exudate. Uvula midline. Airway patent. NECK: Trachea midline. No JVD or lymphadenopathy. Supple, nontender, no meningeal signs. CARDIOVASCULAR: Tachycardic, grade 2 murmur appreciated. RESPIRATORY: Clear to auscultation. Breath sounds equal bilaterally. No wheezes , rales, or rhonchi. GASTROINTESTINAL: Abdomen soft, non-tender, nondistended. No hepato-splenomegaly , or palpable masses. No guarding. MUSCULOSKELETAL: Extremities without clubbing, cyanosis, or edema. No joint tenderness, effusion, or edema noted. NEUROLOGICAL: Awake and alert. Cranial nerves II through XII intact. Motor and sensory grossly within normal limits. Five out of 5 muscle strength in all muscle groups. Normal speech. PSYCH: Mood and affect appropriate. Laboratory Laboratory Tests Test 07/27/17 11:10 07/27/17 13:00 07/27/17 13:19 White Blood Count 6.3 Red Blood Count 2.29 Hemoglobin 7.5 Hematocrit 22.4 Mean Corpuscular Volume 97.9 Mean Corpuscular Hemoglobin 32.8 Mean Corpuscular Hemoglobin Concent 33.5 Red Cell Distribution Width 16.7 Platelet Count 326 Mean Platelet Volume 6.8 Neutrophils (%) (Auto) 66.1 Lymphocytes (%) (Auto) 22.6 Monocytes (%) (Auto) 8.8 Eosinophils (%) (Auto) 1.5 Basophils (%) (Auto) 1.0 Neutrophils # (Auto) 4.2 Lymphocytes # (Auto) 1.4 Monocytes # (Auto) 0.6 Eosinophils # (Auto) 0.1 Basophils # (Auto) 0.1 CBC Comment DIFF FINAL Differential Comment Blood Urea Nitrogen 13 Creatinine 0.95 Random Glucose 213 Calcium Level 9.0 Sodium Level 137 Potassium Level 3.9 Chloride Level 102 Carbon Dioxide Level 22.3 Anion Gap 13 Estimat Glomerular Filtration Rate 58 Total Creatine Kinase 43 Troponin I LESS THAN 0.02 B-Type Natriuretic Peptide 17 Urine Color YELLOW Urine Turbidity CLEAR Urine pH 5.5 Urine Specific [place] 1.026 Urine Protein TRACE Urine Glucose (UA) 70 Urine Ketones NEG Urine Occult Blood NEG Urine Nitrite NEG Urine Bilirubin NEG Urine Urobilinogen LESS THAN 2.0 Urine Leukocyte Esterase NEG Urine RBC LESS THAN 1 Urine WBC 1 Urine Squamous Epithelial Cells 2 Urine Hyaline Casts 9 Urine Mucus FEW Microscopic Urinalysis Comment CULT NOT INDICATED Result Diagram: 07/27/17 1110 07/27/17 1110 Imaging Current Medications Medications (Trade) Dose Ordered Sig/Isabel Route Start Time Stop Time Status Last Admin Sodium Chloride 250 ml @ 15 mls/hr ONCE ONCE IV 07/27/17 14:00 07/28/17 06:39 (Colace) 100 mg BID PO 07/27/17 21:00 (Ferrous Sulfate) 325 mg BIDPC PO 07/27/17 18:00 (Flonase Melvin Spr) 1 spray BID EACH NARE 07/27/17 21:00 (Synthroid) 75 mcg DAILY@0600 PO 07/28/17 06:00 (Cozaar) 50 mg DAILY PO 07/27/17 15:00 (Lopressor) 25 mg BID PO 07/27/17 21:00 (Tricor) 48 mg DAILY PO 07/28/17 09:00 Patient Own Medication PT OWN MED: STIO... DAILY INH 07/28/17 09:00 Future Hold (Protonix Inj) 40 mg Q12H IV PUSH 07/27/17 14:45 UNV (NovoLOG SUPPLEMENTAL SCALE) 1 ACHS SLIDING SCALE SQ 07/27/17 17:00 UNV (NS Flush) 2 ml UNSCH PRN IV FLUSH 07/27/17 15:15 UNV (NS Flush) 2 ml BID IV FLUSH 07/27/17 21:00 UNV (Tylenol) 650 mg Q4H PRN PO 07/27/17 15:15 UNV (Zofran Inj) 4 mg Q6H PRN IVP 07/27/17 15:15 UNV (Tylenol) 650 mg Q6H PRN PO 07/27/17 15:15 UNV (Roxicodone) 5 mg Q4H PRN PO 07/27/17 15:15 UNV (Narcan Inj) 0.4 mg UNSCH PRN IV PUSH 07/27/17 15:15 UNV Caprini VTE Risk Assessment Caprini VTE Risk Assessment: Mod/High Risk (score >= 2) Caprini Risk Assessment Model Point Value = 1 Point Value = 2 Point Value = 3 Point Value = 5 Age 41-60 Minor surgery BMI > 25 kg/m2 Swollen legs Varicose veins or History of unexplained or recurrent spontaneous Oral contraceptives or hormone replacement Sepsis (< 1 month) Serious lung disease, including pneumonia (< 1 month) Abnormal pulmonary function Acute myocardial infarction Congestive heart failure (< 1 month) History of inflammatory bowel disease Medical patient at bed rest Age 61-74 Arthroscopic surgery Major open surgery (> 45 min) Laparoscopic surgery (> 45 min) Malignancy Confined to bed (> 72 hours) Immobilizing plaster cast Central venous access Age >= 75 History of VTE Family history of VTE Factor V Leiden Prothrombin [id number] Lupus anticoagulant Anticardiolipin antibodies Elevated serum homocysteine Heparin-induced thrombocytopenia Other congenital or acquired thrombophilia Stroke (< 1 month) Elective arthroplasty Hip, pelvis, or leg fracture Acute spinal cord injury (< 1 month) Prophylaxis Regimen Total Risk Factor Score Risk Level Prophylaxis Regimen 0-1 Low Early ambulation 2 Moderate Order ONE of the following: *Sequential Compression Device (SCD) *Heparin 5000 units SQ BID 3-4 Higher Order ONE of the following medications: *Heparin 5000 units SQ TID *Enoxaparin/Lovenox 40 mg SQ daily (WT < 150 kg, CrCl > 30 mL/min) *Enoxaparin/Lovenox 30 mg SQ daily (WT < 150 kg, CrCl > 10-29 mL/min) *Enoxaparin/Lovenox 30 mg SQ BID (WT < 150 kg, CrCl > 30 mL/min) AND/OR *Sequential Compression Device (SCD) 5 or more Highest Order ONE of the following medications: *Heparin 5000 units SQ TID (Preferred with Epidurals) *Enoxaparin/Lovenox 40 mg SQ daily (WT < 150 kg, CrCl > 30 mL/min) *Enoxaparin/Lovenox 30 mg SQ daily (WT < 150 kg, CrCl > 10-29 mL/min) *Enoxaparin/Lovenox 30 mg SQ BID (WT < 150 kg, CrCl > 30 mL/min) AND *Sequential Compression Device (SCD) Assessment and Plan Assessment and Plan GIB/ lightheadedness The patient was found to be guaiac positive in the emergency department. She has been having an ongoing GI workup and was scheduled for a video capsule endoscopy next week. Hemoglobin was 7.5 on admission. - Blood transfusion has been ordered by the emergency department. - IV PPI twice a day. - Clear liquid diet for now. - Gastroenterology has been consulted. - hold ASA and Plavix. - Physical therapy. Chronic respiratory failure On 2L NC HS as an outpt. CXR without acute process. Dyspnea exacerbated by anemia. - oxygen as needed. - encourage ambulation. - IS. CAD S/p CABG. EKG with ST depressions in the lateral leads. - continue cardiac regimen. - trend trops/ EKGs. - telemetry. Hypertensive urgency The pt has been off of her blood pressure meds for a few days. - resume home meds. - IV Vasotec as needed. DM On metformin as an outpt. - insulin sliding scale. - add long acting insulin as needed. PPx: SCDs Code Status Full Discussed Condition With Pt, Deepali Jeff Physician Certification 2 Midnight Certification Type: Admission for Inpatient Services Order for Inpatient Services The services are ordered in accordance with Medicare regulations or non- Medicare payer requirements, as applicable. In the case of services not specified as inpatient-only, they are appropriately provided as inpatient services in accordance with the 2-midnight benchmark. Estimated LOS (days): 2 days is the estimated time the patient will need to remain in the hospital, assuming treatment plan goals are met and no additional complications. Post-Hospital Plan: Home Camron Posadas DO Jul 27, 2017 15:19
[2017-07-27] MEDS ORDERED: GLUCAGON 1 MG/ML VIAL OTHER PRN (15:30)
[2017-07-27] MEDS ORDERED: DEXTROSE 50% IN WATER 50 ML VIAL(D50) IV PUSH PRN (15:30)
[2017-07-27] MEDS: INSULIN ASPART SUPPLEMENTAL SCALE SQ SCH ×2 (17:00→20:49)
[2017-07-27] MEDS: LOSARTAN 50 MG TAB PO SCH (17:33)
[2017-07-27] MEDS: FERROUS SULFATE 325 MG (65 MG ELEMENTAL IRON) TAB PO SCH (17:33)
[2017-07-27] MEDS: POLYETHYLENE GLYCOL 17 GM PKG PO SCH (17:34)
[2017-07-27] MEDS: PANTOPRAZOLE SODIUM 40 MG VIAL IV PUSH SCH (17:34)
[2017-07-27] MEDS: DOCUSATE SODIUM 100 MG CAP PO SCH (20:49)
[2017-07-27] MEDS: SODIUM CHLORIDE 0.9% FLUSH 10 ML FLUSH IV FLUSH SCH (20:49)
[2017-07-27] MEDS: FLUTICASONE PROPIONATE 50 MCG/ACT 16 GM NASAL SPRAY EACH NARE SCH (20:49)
[2017-07-27] MEDS: METOPROLOL TARTRATE 25 MG TAB PO SCH (20:49)
[2017-07-27] MEDS ORDERED: MELATONIN 5 MG TAB PO ONE (23:45)
[2017-07-28] VITALS (9 sets, daily range): BP systolic 111–124; BP diastolic 55–63; PULSE 70–96; RESP 16–18; TEMP 96.5–98.7; O2SAT 92–98
[2017-07-28] MEDS: PANTOPRAZOLE SODIUM 40 MG VIAL IV PUSH SCH (05:50)
[2017-07-28] MEDS ORDERED: LEVOTHYROXINE SODIUM 75 MCG TAB PO SCH (06:00)
[2017-07-28] MEDS: INSULIN ASPART SUPPLEMENTAL SCALE SQ SCH ×2 (08:24→12:57)
[2017-07-28] MEDS ORDERED: FENOFIBRATE 48 MG TAB PO SCH (09:00)
[2017-07-28] MEDS ORDERED: NON-FORMULARY DRUG (Rosuvastatin (Crestor) 10 MG) PO SCH (09:00)
[2017-07-28] MEDS ORDERED: STIOLTO RESPIMAT INH SCH (09:00)
[2017-07-28] MEDS: SODIUM CHLORIDE 0.9% FLUSH 10 ML FLUSH IV FLUSH SCH (09:49)
[2017-07-28] MEDS: FLUTICASONE PROPIONATE 50 MCG/ACT 16 GM NASAL SPRAY EACH NARE SCH (09:49)
[2017-07-28 09:50] LABS: BASOPHIL % 0.9 % (0.0-2.0); EOSINOPHIL # 0.2 TH/MM3 (0-0.4); EOSINOPHIL % 3.2 % (0.0-4.0); HEMATOCRIT 27.5 % (35.0-46.0); HEMOGLOBIN 9.4 GM/DL (11.6-15.3); LYMPH % 24.9 % (9.0-44.0); LYMPHOCYTE # 1.2 TH/MM3 (1.0-4.8); MEAN CELL VOLUME 92.2 FL (80.0-100.0); MEAN CORPUSCULAR HEMOGLOBIN 31.6 PG (27.0-34.0); MEAN CORPUSCULAR HGB CONC 34.3 % (32.0-36.0); MEAN PLATELET VOLUME 6.7 FL (7.0-11.0); MONO % 9.6 % (0.0-8.0); MONOCYTE # 0.5 TH/MM3 (0-0.9); NEUT % 61.4 % (16.0-70.0); PLATELET COUNT 247 TH/MM3 (150-450); RED BLOOD COUNT 2.99 MIL/MM3 (4.00-5.30); RED CELL DISTRIBUTION WIDTH 19.3 % (11.6-17.2); WHITE BLOOD COUNT 4.8 TH/MM3 (4.0-11.0)
[2017-07-28] MEDS: FERROUS SULFATE 325 MG (65 MG ELEMENTAL IRON) TAB PO SCH ×2 (09:50→09:52)
[2017-07-28] MEDS: LOSARTAN 50 MG TAB PO SCH (09:50)
[2017-07-28] MEDS: DOCUSATE SODIUM 100 MG CAP PO SCH (09:50)
[2017-07-28] MEDS: POLYETHYLENE GLYCOL 17 GM PKG PO SCH (09:50)
[2017-07-28] MEDS: METOPROLOL TARTRATE 25 MG TAB PO SCH (09:50)
--- NOTE | 2017-07-28 10:28 | HHI.PR ---
Subjective Remarks The patient was feeling well and wanted to go home. She said she's talked with the stomach specialist yesterday. She denies lightheadedness or chest pain. She is breathing comfortably. Discussed with nursing. Objective Vitals Vital Signs Date Time Temp Pulse Resp B/P (MAP) Pulse Ox O2 Delivery O2 Flow Rate FiO2 07/28/17 08:00 97.0 74 18 124/63 (83) 98 07/28/17 04:07 96 07/28/17 04:01 98.3 75 16 111/57 (75) 98 07/28/17 02:16 98.0 70 18 121/57 98 07/28/17 00:12 98.7 75 16 113/55 (74) 96 07/28/17 00:05 75 07/27/17 23:14 98.6 74 18 126/58 98 07/27/17 22:55 98.2 83 18 134/65 97 07/27/17 22:46 98.7 87 16 143/70 (94) 95 07/27/17 20:58 98.7 87 18 143/70 95 07/27/17 20:19 93 07/27/17 20:00 95 Nasal Cannula 2.00 07/27/17 18:29 96.4 94 18 178/74 94 07/27/17 18:14 99.0 92 18 176/74 93 07/27/17 17:58 98.0 89 16 181/76 (111) 96 07/27/17 16:00 97.8 95 20 188/77 (114) 100 07/27/17 12:15 100 16 07/27/17 10:36 98.6 127 17 191/74 (113) 99 I/O 07/27/17 07/27/17 07/27/17 07/28/17 07/28/17 07/28/17 07:00 15:00 23:00 07:00 15:00 23:00 Intake Total 790 ml 410 ml Balance 790 ml 410 ml Intake Oral 360 ml Packed Cells 400 ml 400 ml Blood Product IV Normal Saline Flush 30 ml 10 ml Result Diagram: 07/28/17 0922 07/27/17 1110 Imaging Last Impressions Head CT 07/27/17 1234 Signed Impressions: Service Date/Time: Thursday, July 27, 2017 13:30 - CONCLUSION: Normal examination. John Villaseñor MD Chest X-Ray 07/27/17 1036 Signed Impressions: Service Date/Time: Thursday, July 27, 2017 10:54 - CONCLUSION: 1. Subtle bilateral posterior pleural thickening versus very trace pleural effusions. Antonio Maurer MD Objective Remarks GENERAL: This is a well-nourished, well-developed patient, in no apparent distress. SKIN: No rashes, ecchymoses or lesions. Cool and dry. HEAD: Atraumatic. Normocephalic. No temporal or scalp tenderness. EYES: Pupils equal round and reactive. Extraocular motions intact. No scleral icterus. No injection or drainage. ENT: Nose without bleeding, purulent drainage or septal hematoma. Throat without erythema, tonsillar hypertrophy or exudate. Uvula midline. Airway patent. NECK: Trachea midline. No JVD or lymphadenopathy. Supple, nontender, no meningeal signs. CARDIOVASCULAR: Tachycardic, grade 2 murmur appreciated. RESPIRATORY: Clear to auscultation. Breath sounds equal bilaterally. No wheezes , rales, or rhonchi. GASTROINTESTINAL: Abdomen soft, non-tender, nondistended. No hepato-splenomegaly , or palpable masses. No guarding. MUSCULOSKELETAL: Extremities without clubbing, cyanosis, or edema. No joint tenderness, effusion, or edema noted. NEUROLOGICAL: Awake and alert. Cranial nerves II through XII intact. Motor and sensory grossly within normal limits. Five out of 5 muscle strength in all muscle groups. Normal speech. PSYCH: Mood and affect appropriate. Medications and IVs Current Medications Medications (Trade) Dose Ordered Sig/Isabel Route Start Time Stop Time Status Last Admin (Colace) 100 mg BID PO 07/27/17 21:00 07/28/17 09:50 (Ferrous Sulfate) 325 mg BIDPC PO 07/27/17 18:00 07/27/17 17:33 (Flonase Melvin Spr) 1 spray BID EACH NARE 07/27/17 21:00 07/28/17 09:49 (Synthroid) 75 mcg DAILY@0600 PO 07/28/17 06:00 07/28/17 05:50 (Cozaar) 50 mg DAILY PO 07/27/17 15:00 07/28/17 09:50 (Lopressor) 25 mg BID PO 07/27/17 21:00 07/28/17 09:50 (Tricor) 48 mg DAILY PO 07/28/17 09:00 07/28/17 09:49 Patient Own Medication PT OWN MED: STIO... DAILY INH 07/28/17 09:00 Future Hold (Protonix Inj) 40 mg Q12H IV PUSH 07/27/17 17:00 07/28/17 05:50 (NovoLOG SUPPLEMENTAL SCALE) 1 ACHS SLIDING SCALE SQ 07/27/17 17:00 (NS Flush) 2 ml UNSCH PRN IV FLUSH 07/27/17 15:15 (NS Flush) 2 ml BID IV FLUSH 07/27/17 21:00 07/28/17 09:49 (Tylenol) 650 mg Q4H PRN PO 07/27/17 15:15 (Zofran Inj) 4 mg Q6H PRN IVP 07/27/17 15:15 (Tylenol) 650 mg Q6H PRN PO 07/27/17 15:15 (Roxicodone) 5 mg Q4H PRN PO 07/27/17 15:15 (Narcan Inj) 0.4 mg UNSCH PRN IV PUSH 07/27/17 15:15 (Miralax) 17 gm DAILY PO 07/27/17 16:00 07/28/17 09:50 (D50w (Vial) Inj) 50 ml UNSCH PRN IV PUSH 07/27/17 15:30 (Glucagon Inj) 1 mg UNSCH PRN OTHER 07/27/17 15:30 A/P Assessment and Plan GIB/ lightheadedness The patient was found to be guaiac positive in the emergency department. She has been having an ongoing GI workup and was scheduled for a video capsule endoscopy next week. Hemoglobin was 7.5 on admission. S/p two units of red cells. Hgb now 9.4. GI consult appreciated. - continue PPI BID. - ADAT. - hold ASA and Plavix. - outpt follow-up with GI for video capsule endoscopy next week. - Physical therapy. Chronic respiratory failure On 2L NC HS as an outpt. CXR without acute process. Currently breathing at baseline. - oxygen as needed. - encourage ambulation. - IS. CAD S/p CABG in February. EKG with ST depressions in the lateral leads which have improved with transfusion. Trops negative x3. The pt is asymptomatic. - continue cardiac regimen. Holding ASA and Plavix as above. - repeat EKG. - telemetry. - outpt follow-up with cardiology. Hypertensive urgency The pt has been off of her blood pressure meds for a few days. - resume home meds. Resolved. - IV Vasotec as needed. DM On metformin as an outpt. - insulin sliding scale. - add long acting insulin as needed. Well controlled at this time. PPx: SCDs Discharge Planning Hopefully d/c home today Camron Posadas DO Jul 28, 2017 10:28
[2017-07-28 10:30] LABS: ALBUMIN 3.5 GM/DL (3.4-5.0); ALKALINE PHOSPHATASE 57 U/L (45-117); ALT (GPT) 15 U/L (10-53); AST (GOT) 12 U/L (15-37); BICARBONATE 26.6 MEQ/L (21.0-32.0); BLOOD UREA NITROGEN 10 MG/DL (7-18); CALCIUM 8.7 MG/DL (8.5-10.1); CHLORIDE 108 MEQ/L (98-107); CREATININE 0.76 MG/DL (0.50-1.00); GLOMERULAR FILTRATION RATE 75 ML/MIN (>89); GLUCOSE,RANDOM 110 MG/DL (74-106); SODIUM (NA) 143 MEQ/L (136-145); TOTAL BILIRUBIN ADULT 0.9 MG/DL (0.2-1.0); TOTAL PROTEIN 6.1 GM/DL (6.4-8.2)
--- NOTE | 2017-07-28 10:30 | HHI.GIFU ---
Subjective Remarks Pt ALert NAD feels well HB up to 9.4 post tx Objective Vitals I&O Vital Signs Date Time Temp Pulse Resp B/P (MAP) Pulse Ox O2 Delivery O2 Flow Rate FiO2 07/28/17 08:00 97.0 74 18 124/63 (83) 98 07/28/17 04:07 96 07/28/17 04:01 98.3 75 16 111/57 (75) 98 07/28/17 02:16 98.0 70 18 121/57 98 07/28/17 00:12 98.7 75 16 113/55 (74) 96 07/28/17 00:05 75 07/27/17 23:14 98.6 74 18 126/58 98 07/27/17 22:55 98.2 83 18 134/65 97 07/27/17 22:46 98.7 87 16 143/70 (94) 95 07/27/17 20:58 98.7 87 18 143/70 95 07/27/17 20:19 93 07/27/17 20:00 95 Nasal Cannula 2.00 07/27/17 18:29 96.4 94 18 178/74 94 07/27/17 18:14 99.0 92 18 176/74 93 07/27/17 17:58 98.0 89 16 181/76 (111) 96 07/27/17 16:00 97.8 95 20 188/77 (114) 100 07/27/17 12:15 100 16 07/27/17 10:36 98.6 127 17 191/74 (113) 99 I/O 07/27/17 07/27/17 07/27/17 07/28/17 07/28/17 07/28/17 07:00 15:00 23:00 07:00 15:00 23:00 Intake Total 790 ml 410 ml Balance 790 ml 410 ml Intake Oral 360 ml Packed Cells 400 ml 400 ml Blood Product IV Normal Saline Flush 30 ml 10 ml Laboratory CBC Diagram 07/27/17 11:10 07/28/17 09:22 Laboratory Tests Test 07/27/17 11:10 07/27/17 13:00 07/27/17 13:19 07/27/17 17:00 White Blood Count 6.3 Red Blood Count 2.29 Hemoglobin 7.5 Hematocrit 22.4 Mean Corpuscular Volume 97.9 Mean Corpuscular Hemoglobin 32.8 Mean Corpuscular Hemoglobin Concent 33.5 Red Cell Distribution Width 16.7 Platelet Count 326 Mean Platelet Volume 6.8 Neutrophils (%) (Auto) 66.1 Lymphocytes (%) (Auto) 22.6 Monocytes (%) (Auto) 8.8 Eosinophils (%) (Auto) 1.5 Basophils (%) (Auto) 1.0 Neutrophils # (Auto) 4.2 Lymphocytes # (Auto) 1.4 Monocytes # (Auto) 0.6 Eosinophils # (Auto) 0.1 Basophils # (Auto) 0.1 CBC Comment DIFF FINAL Differential Comment Blood Urea Nitrogen 13 Creatinine 0.95 Random Glucose 213 Calcium Level 9.0 Sodium Level 137 Potassium Level 3.9 Chloride Level 102 Carbon Dioxide Level 22.3 Anion Gap 13 Estimat Glomerular Filtration Rate 58 Total Creatine Kinase 43 Troponin I LESS THAN 0.02 0.02 B-Type Natriuretic Peptide 17 Urine Color YELLOW Urine Turbidity CLEAR Urine pH 5.5 Urine Specific [place] 1.026 Urine Protein TRACE Urine Glucose (UA) 70 Urine Ketones NEG Urine Occult Blood NEG Urine Nitrite NEG Urine Bilirubin NEG Urine Urobilinogen LESS THAN 2.0 Urine Leukocyte Esterase NEG Urine RBC LESS THAN 1 Urine WBC 1 Urine Squamous Epithelial Cells 2 Urine Hyaline Casts 9 Urine Mucus FEW Microscopic Urinalysis Comment CULT NOT INDICATED Test 07/27/17 23:24 07/28/17 09:22 Troponin I LESS THAN 0.02 White Blood Count 4.8 Red Blood Count 2.99 Hemoglobin 9.4 Hematocrit 27.5 Mean Corpuscular Volume 92.2 Mean Corpuscular Hemoglobin 31.6 Mean Corpuscular Hemoglobin Concent 34.3 Red Cell Distribution Width 19.3 Platelet Count 247 Mean Platelet Volume 6.7 Neutrophils (%) (Auto) 61.4 Lymphocytes (%) (Auto) 24.9 Monocytes (%) (Auto) 9.6 Eosinophils (%) (Auto) 3.2 Basophils (%) (Auto) 0.9 Neutrophils # (Auto) 3.0 Lymphocytes # (Auto) 1.2 Monocytes # (Auto) 0.5 Eosinophils # (Auto) 0.2 Basophils # (Auto) 0.0 CBC Comment DIFF FINAL Differential Comment Physical Exam . CHEST: Chest is clear to auscultation and percussion. CARDIAC: Regular rate and rhythm with no murmur gallop or rubs. ABDOMEN: Soft, nondistended, nontender; no hepatosplenomegaly; bowel sounds are present in all four quadrants. EXTREMITIES: No clubbing, cyanosis, or edema. SKIN: Normal; no rash; no jaundice. HEEL NAIL RASPER: No focal deficits; alert and oriented times three. Assessment and Plan Assessment: (1) Occult GI bleeding ICD Codes: R19.5 - Other fecal abnormalities (2) Anemia ICD Codes: D64.9 - Anemia, unspecified Plan Ok for DC with out pt f/u capsule endoscopy early next week...Would Hold Plavix if possible discussed w staff and pt Hunter Marrufo MD Jul 28, 2017 10:30
--- NOTE | 2017-07-28 10:43 | MB ---
cc: Hunter Marrufo MD DATE OF CONSULT: 07/27/2017 REASON FOR GASTROINTESTINAL CONSULTATION: Evaluation of heme positive stools, occult GI bleed, anemia. HISTORY OF PRESENT ILLNESS: Pleasant 71-year-old female who is admitted with symptomatic anemia. She was feeling lightheaded and dizzy when she presented to the emergency room, was found to have hemoglobin of 7.5 baseline, previously was 9.4. She has a history of anemia. Actually, she had bypass surgery done last year. At that time, she was found to be anemic. She required transfusion prior to her bypass surgery. She is noted to be on Plavix therapy for stents that were inserted. She has a history of peripheral vascular disease as well. The patient denies any NSAID use. She does have black stools because she is maintained on iron therapy. She has constipation because of that as well. She endoscopic workup in late April of last year. EGD, colonoscopy unrevealing for a source of bleeding. She has been followed by Dr. Whitney in our practice and actually she had capsule endoscopy planned for next week and she is scheduled to have that performed. The patient stopped her Plavix yesterday because of the symptoms she developed. We were asked to evaluate her further. PAST MEDICAL HISTORY: Includes anemia, coronary artery disease, peripheral vascular disease, diabetes, hypothyroidism, COPD, hypertension, CABG x 3, bilateral stents in the lower extremities, bilateral Fem-Pop procedures, cholecystectomy. ALLERGIES: ERYTHROMYCIN, STATINS. FAMILY HISTORY: Negative from a GI standpoint, except for a familial history of esophageal cancer. SOCIAL HISTORY: She stopped smoking 20 years ago. She denies alcohol or illicit drug use. MEDICATIONS: Include ferrous sulfate, Flonase, Synthroid, Cozaar, Lopressor, Tricor, Protonix, Zofran, Narcan, Roxicodone. REVIEW OF SYSTEMS: A 12-point review of systems, as stated in the HPI. She denies any vomiting. She denies abdominal pain or weight loss. She has no chest pain. PHYSICAL EXAMINATION: GENERAL: Well developed female, alert and oriented x 3, in no acute distress. VITAL SIGNS: Stable. HEENT: Normocephalic, atraumatic. Sclerae anicteric. Oral mucosa moist. NECK: Supple. CARDIOVASCULAR: S1, S2, regular rhythm. PULMONARY: Chest is clear to A and P. ABDOMEN: Flat, soft, nontender, no mass or organomegaly. Bowel sounds are present throughout all quadrants. EXTREMITIES: Without clubbing, cyanosis, edema. RECTAL: Deferred. OTHER LABORATORY DATA: White count was normal. Electrolytes were stable. Glucose was 213. IMAGING: Chest x-ray reveals some subtle blunting at the posterior costophrenic angles. IMPRESSION AND PLAN: This is a 71-year-old female who presents with occult gastrointestinal bleeding, heme positive stools and symptomatic anemia. Endoscopic workup has been negative thus far. I agree, the patient certainly will require further evaluation with capsule endoscopy to rule out small bowel angiodysplasia or a small bowel etiology as to the source of the patient's bleeding, which is highly suspicious. I have explained that to the patient. Certainly, the patient has been taking Plavix, which can contribute to the occult gastrointestinal bleeding. I would agree with transfusions to an adequate hemoglobin at this time and proceed with obtaining capsule endoscopy as soon as possible for further recommendations for example possible push enteroscopy to treat and cauterize any vascular lesions which may be responsible for the bleeding. I have discussed this in detail with the patient. Continue to monitor vital signs and followup the hemoglobin. Thank you kindly for this consult. MD LUCHO Perez/RACIEL , 06:05 PM , 09:33 PM
[2017-07-28] MEDS ORDERED: PANT40TA3 PO (13:35)
--- NOTE | 2017-07-28 13:35 | HHI.DCPOC ---
Discharge Care Plan Diagnosis: (1) Occult GI bleeding (2) Anemia (3) Diabetes mellitus (4) Coronary artery disease (5) COPD (chronic obstructive pulmonary disease) Goals to Promote Your Health * To prevent worsening of your condition and complications * To maintain your health at the optimal level Directions to Meet Your Goals Take your medications as prescribed Follow your dietary instruction Follow activity as directed Keep your appointments as scheduled Take your immunizations and boosters as scheduled If your symptoms worsen call your PCP, if no PCP go to Urgent Care Center or Emergency Room Smoking is Dangerous to Your Health. Avoid second hand smoke Call the 24-hour hour crisis hotline for domestic abuse at Camron Posadas DO Jul 28, 2017 13:35
--- NOTE | 2017-07-28 19:57 | EKG ---
Date Performed: 07/27/2017 Time Performed: 21:22:47 PTAGE: 71 years EKG: Sinus rhythm NONSPECIFIC ST & T-WAVE ABNORMALITY BORDERLINE ECG PREVIOUS TRACING : 07/27/2017 16.48 Since the previous tracing, no significant change noted DOCTOR: Flakita Anaya Interpretating Date/Time 07/28/2017 19:55:17
--- NOTE | 2017-07-28 20:12 | EKG ---
Date Performed: 07/27/2017 Time Performed: 16:48:06 PTAGE: 71 years EKG: Sinus rhythm NONSPECIFIC ST-T ABNORMALITY BORDERLINE ECG PREVIOUS TRACING : 07/27/2017 11.47 Since the previous tracing, no significant change noted DOCTOR: Flakita Anaya Interpretating Date/Time 07/28/2017 20:11:37
--- NOTE | 2017-07-28 20:30 | EKG ---
Date Performed: 07/27/2017 Time Performed: 11:47:16 PTAGE: 71 years EKG: SINUS TACHYCARDIA POSSIBLE LEFT ATRIAL ENLARGEMENT ST DEVIATION AND MODERATE T-WAVE ABNORMA LITY ABNORMAL ECG PREVIOUS TRACING : 03/06/2017 10.48 Since the previous tracing, ST-T changes are new DOCTOR: Flakita Anaya Interpretating Date/Time 07/28/2017 20:28:46
--- NOTE | 2017-07-29 23:49 | EKG ---
Date Performed: 07/28/2017 Time Performed: 12:40:58 PTAGE: 71 years EKG: Sinus rhythm WITH FIRST DEGREE AV BLOCK NONSPECIFIC T-WAVE ABNORMALITY ABNORMAL ECG PREVIOUS TRACING : 07/27/2017 21.22 Since the previous tracing, no significant change noted DOCTOR: Dain Johnson Interpretating Date/Time 07/29/2017 23:46:19
== END 2017-07-28 14:46 | disposition home or self-care (01) | DRG 378 ==
LOC: NEPE 10:21 → NEDA 14:25 → OBSVTOIN 15:04 → NEDA 15:48 → NEPFCDU 17:42
PROVIDERS: ADMIT Hospitalist; ATTEND Hospitalist
PROC: 30233N1 Transfusion of Nonautologous Red Blood Cells into Peripheral Vein, Percutaneous Approach (ICD-10-PCS; principal; 2017-07-27)
DX: K92.2 Gastrointestinal hemorrhage, unspecified (principal); J96.10 Chronic respiratory failure, unspecified whether with hypoxia or hypercapnia; J44.9 Chronic obstructive pulmonary disease, unspecified; E11.51 Type 2 diabetes mellitus with diabetic peripheral angiopathy without gangrene; Z79.84 Long term (current) use of oral hypoglycemic drugs; D64.9 Anemia, unspecified; I16.0 Hypertensive urgency; I25.10 Atherosclerotic heart disease of native coronary artery without angina pectoris; Z95.1 Presence of aortocoronary bypass graft; Z79.02 Long term (current) use of antithrombotics/antiplatelets; I10 Essential (primary) hypertension; E78.5 Hyperlipidemia, unspecified; Z79.82 Long term (current) use of aspirin; E07.9 Disorder of thyroid, unspecified; K59.09 Other constipation; Z87.891 Personal history of nicotine dependence
CPT/HCPCS: 36430; 70450; 71046; 80048; 80053; 81001; 82550; 82948; 83880; 84484; 85025; 86850; 86900; 86901; 86920; 93005; C9113; J7050; P9016